=== PATIENT | female | born 1945 | race Caucasian/White ===

== ENCOUNTER 2019-07-07 08:40 | Outpatient (CLI) | payer MEDICARE, SELFPAY ==
--- NOTE | ~2019-07-07 | MM_ITS ---
EXAMINATION: MM screening cat BI w bruno HISTORY: Screening mammogram TECHNIQUE: Rotated lateral left cc view. There is a coarse determination as is suggested in the clear . There was some interval and there is a lower posterior is a short.*End there is where there is a te luis of the abdominal wall defect is seen or free the subcutaneous and 5 suggesting erosions of the wa ll and a standard. There is heterogeneous peripherally. There is an is present. Craniocaudal and mediolateral oblique 3-D tomosynthesis images were obtained and synthetic 2-D images were generated. CAD analysis was submitted and interpreted. COMPARISON: No prior mammogram is available for comparison at this institution. BREAST PARENCHYMAL COMPOSITION: There are scattered areas of fibroglandular density. FINDINGS: There is postoperative change of the left breast including volume loss from partial mastect shirley for breast cancer. There is no evidence of suspicious mass, calcification, or architectural disto rtion to suggest malignancy in either breast. There has been no suspicious interval change. IMPRESSION: 1. No mammographic evidence of malignancy. 2. Recommend routine screening mammography in one year. BI-RADS Category 2: Benign finding(s). Reviewed, dictated and finalized at location A. C D STRIPPER
== END 2019-07-07 08:41 | disposition home or self-care (01) ==
LOC: ANHIMG 08:43
PROVIDERS: PCP Internal Medicine; Visit Provider Internal Medicine
DX: Z12.31 Encounter for screening mammogram for malignant neoplasm of breast (principal)
CPT/HCPCS: 77063; 77067

== ENCOUNTER 2019-07-14 12:41 | Outpatient (CLI) | payer MEDICARE, SELFPAY ==
--- NOTE | ~2019-07-14 | XR_ITS ---
EXAMINATION: XR abdomen/kub 1V DATE: 07/14/2019 13:07 INDICATION: Left-sided renal stone with left abdominal pain TECHNIQUE: A supine view of the abdomen on 2 radiographs was obtained. COMPARISON: CT dated 06/18/[address] dated 06/13/2019 FINDINGS: No evident residual urolithiasis at either kidney or along the course of ureters. Costochondral calci fications project over the diaphragm on the left and right. Unchanged tiny phlebolith in the left hem ipelvis. Bilateral pelvic suture lines likely related to prior hysterectomy. Normal bowel gas pattern . Lung bases are clear. Severe bilateral lower lumbar facet osteoarthritis. IMPRESSION: 1. No urolithiasis. Reviewed, dictated and finalized at location A. RYCOOK IMPRESSION: 1. No urolithiasis.
== END 2019-07-14 12:42 | disposition home or self-care (01) ==
PROVIDERS: PCP Internal Medicine; Visit Provider Urology
DX: N20.0 Calculus of kidney (principal)
CPT/HCPCS: 74018

== ENCOUNTER 2020-03-13 08:33 | Outpatient (CLI) | payer MEDICARE, SELFPAY ==
--- NOTE | ~2020-03-13 | XR_ITS ---
XR abdomen/kub 1V DATE: 03/13/2020 08:55 INDICATION: History of kidney stones TECHNIQUE: AP projection, 2 views COMPARISON: 07/14/2019 KUB FINDINGS: There is a prominent amount of fecal material within the colon. No bowel obstruction is jasson dent. There are some radiopaque sutures overlying both sides of the pelvis. Associated as are intact. No visceromegaly is evident. No significant abnormal calcification is noted . There are degenerative changes of the lumbar spine, particularly at the apophyseal joints L4-5 and L5 -S1. IMPRESSION: Prominent amount fecal material within the colon; no bowel obstruction No apparent urinary tract calcifications are noted Reviewed, dictated and finalized at Location A. Reviewed, dictated and finalized at location A. IMPRESSION: Prominent amount fecal material within the colon; no bowel obstruct ion No apparent urinary tract calcifications are noted
== END 2020-03-13 08:34 | disposition home or self-care (01) ==
LOC: ANHIMG 08:37
PROVIDERS: PCP Internal Medicine; Visit Provider Urology
DX: Z87.442 Personal history of urinary calculi (principal)
CPT/HCPCS: 74018

== ENCOUNTER 2020-04-12 14:49 | Outpatient (CLI) | payer MEDICARE, SELFPAY ==
--- NOTE | ~2020-04-12 | DEXA_ITS ---
Bone Density Report Name: Marysol Robb Age: 75 Sex: Female Ethnicity: White Date of : 1945 Indication: osteopenia; cancer; hysterectomy; Referring Provider: ALBERT, TAYLER Morrison Study: Bone densitometry was performed. Exam Date: April 12, 2020 Accession number: [id number] Bone Density: Region BMD T-score Z-score Classification AP Spine (L1, L2, L3) 0.842 -1.6 0.7 Osteopenia Femoral Neck (Left) 0.699 -1.3 0.7 Osteopenia Total Hip (Left) 0.792 -1.2 0.5 Osteopenia Total Hip Bilateral Avg 0.790 -1.3 0.5 Osteopenia Femoral Neck (Right) 0.682 -1.5 0.5 Osteopenia Total Hip (Right) 0.787 -1.3 0.5 Osteopenia World Health Organization criteria for BMD impression classify patients as: Normal (T-score at or above -1.0), Osteopenia (T-score between -1.0 and -2.5), or Osteoporosis (T-score at or below -2.5). 10-year Fracture Risk(1): Major Osteoporotic Fracture 11% Hip Fracture 2.0% Reported Risk Factors: [place] (), Neck BMD=0.682, BMI=27.9 (1) FRAX(R) Version 3.08. Fracture probability calculated for an untreated patient. Fracture probability may be lower if the patient has received treatment. Previous Exams: Region Exam Age BMD T-score BMD Change BMD Change Date g/cm2 vs Baseline vs Previous AP Spine(L1, L2, L3) 04/12/2020 75 0.842 -1.6 -0.013(-1.5%) -0.013(-1.5%) 05/03/2014 69 0.855 -1.5 Total Hip(Left) 04/12/2020 75 0.792 -1.2 -0.070(-8.1%)* -0.070(-8.1%)* 05/03/2014 69 0.862 -0.7 Total Hip(Right) 04/12/2020 75 0.787 -1.3 -0.086(-9.9%)* -0.086(-9.9%)* 05/03/2014 69 0.873 -0.6 *Denotes significance at 95% confidence level, LSC for AP Spine = 0.022 g/cm2, LSC for Total Hip = 0.027 g/cm2 Clinical Information Provided by Patient: Has the following medical conditions: Cancer, Hysterectomy Patient maximum height was 65.5 Menopause Age: 46 No regular weight bearing exercise Does not regularly consume dairy products Drinks caffeinated beverages Onset of menses at age 14 Number of children 2 Impression: The patient has low bone mass, based on the Total Spine T-score. The patient has an estimated ten-year risk of hip fracture of 2% and an estimated ten-year risk of major fracture of 11%, based on the WHO FRAX algorithm. The BMD for the Total Hip(Left) decreased, changing by -8.1% since the last DXA exam. The BMD for the Total Hip(Right) decreased, changing by -9.9% since the last DXA exam. Discuss
== END 2020-04-12 14:50 | disposition home or self-care (01) ==
LOC: ANHIMG 14:51
PROVIDERS: PCP Internal Medicine; Visit Provider Internal Medicine
DX: N95.9 Unspecified menopausal and perimenopausal disorder (principal); M85.80 Other specified disorders of bone density and structure, unspecified site
CPT/HCPCS: 77080

== ENCOUNTER 2020-07-10 09:58 | Outpatient (CLI) | payer MEDICARE, SELFPAY ==
--- NOTE | ~2020-07-10 | MM_ITS ---
EXAMINATION: MM screening cat BI w bruno HISTORY: Screening mammogram, history of left breast cancer TECHNIQUE: Craniocaudal and mediolateral oblique 3-D tomosynthesis images were obtained and synthetic 2-D images were generated. CAD analysis was submitted and interpreted. COMPARISON: 07/07/2019 BREAST PARENCHYMAL COMPOSITION: There are scattered areas of fibroglandular density. FINDINGS: There are stable lumpectomy changes in the left breast. There is no evidence of suspicious mass, calcification, or architectural distortion to suggest malignancy in either breast. There has be en no suspicious interval change. IMPRESSION: 1. No mammographic evidence of malignancy. 2. Recommend routine screening mammography in one year. BI-RADS Category 2: Benign finding(s). Reviewed, dictated and finalized at location A. AL MERCHANDISER
== END 2020-07-10 09:59 | disposition home or self-care (01) ==
LOC: ANHIMG 10:02
PROVIDERS: PCP Internal Medicine; Visit Provider Internal Medicine
DX: Z12.31 Encounter for screening mammogram for malignant neoplasm of breast (principal)
CPT/HCPCS: 77063; 77067

== ENCOUNTER 2021-07-11 11:39 | Outpatient (CLI) | payer MEDICARE, SELFPAY ==
--- NOTE | ~2021-07-11 | MM_ITS ---
EXAMINATION: MM screening cat BI w bruno HISTORY: Screening mammogram, history of left breast cancer TECHNIQUE: Craniocaudal and mediolateral oblique 3-D tomosynthesis images were obtained and synthetic 2-D images were generated. CAD analysis was submitted and interpreted. COMPARISON: 07/10/2020, 07/07/2019 BREAST PARENCHYMAL COMPOSITION: There are scattered areas of fibroglandular density. FINDINGS: Lumpectomy changes are noted in the left breast. There is no evidence of suspicious mass, c alcification, or architectural distortion to suggest malignancy in either breast. There has been no s uspicious interval change. IMPRESSION: 1. No mammographic evidence of malignancy. 2. Recommend routine screening mammography in one year. BI-RADS Category 2: Benign finding(s). Reviewed, dictated and finalized at location A. ICING MANAGER
== END 2021-07-11 11:40 | disposition home or self-care (01) ==
LOC: ANHIMG 11:41
PROVIDERS: PCP Internal Medicine; Visit Provider Internal Medicine
DX: Z12.31 Encounter for screening mammogram for malignant neoplasm of breast (principal)
CPT/HCPCS: 77063; 77067

== ENCOUNTER 2022-07-15 10:36 | Outpatient (CLI) | payer MEDICARE, SELFPAY ==
--- NOTE | ~2022-07-15 | MM_ITS ---
EXAMINATION: MM screening cat BI w bruno HISTORY: Screening mammogram TECHNIQUE: Craniocaudal and mediolateral oblique 3-D tomosynthesis images were obtained and synthetic 2-D images were generated. CAD analysis was submitted and interpreted. COMPARISON: July 2021, July 10, 2020, July 07, 2019 bilateral screening mammogram examinati ons BREAST PARENCHYMAL COMPOSITION: The breasts are heterogeneously dense, which may obscure small masses . FINDINGS: Status post left partial mastectomy, with volume loss of the left breast compared to the ri ght. There is no evidence of suspicious mass, calcification, or architectural distortion to suggest m alignancy in either breast. There has been no suspicious interval change. IMPRESSION: 1. Status post left partial mastectomy for history of breast cancer. No mammographic evidence of piedad gnancy. 2. Recommend routine screening mammography in one year. BI-RADS Category 2: Benign finding(s). Reviewed, dictated and finalized at location A. TENDER IMPRESSION: 1. Status post left partial mastectomy for history of breast cancer. No mammogr aphic evidence of malignancy. 2. Recommend routine screening mammography in one year. BI-RADS Category 2: Benign finding(s).
== END 2022-07-15 10:37 | disposition home or self-care (01) ==
LOC: ANHIMG 10:39
PROVIDERS: PCP Internal Medicine; Visit Provider Internal Medicine
DX: Z12.31 Encounter for screening mammogram for malignant neoplasm of breast (principal)
CPT/HCPCS: 77063; 77067

== ENCOUNTER 2023-01-09 09:42 | Outpatient (CLI) | payer MEDICARE, SELFPAY ==
--- NOTE | ~2023-01-09 | DEXA_ITS ---
Bone Density Report Name: JAVIER ALFORD Age: 77 Sex: Female Ethnicity: White Date of : 1945 Indication: osteopenia; hyperparathyroidism; height loss; prior fracture; hysterectomy; postmenopausal Referring Provider: CHRISTINAKARRI Study: Bone densitometry was performed. Exam Date: January 09, 2023 Accession number: [id number] Bone Density: Region BMD T-score Z-score Classification AP Spine(L1-L4) 0.848 -1.8 0.7 Osteopenia Femoral Neck (Left) 0.631 -2.0 0.2 Osteopenia Total Hip (Left) 0.754 -1.5 0.3 Osteopenia Femoral Neck (Right) 0.657 -1.7 0.4 Osteopenia Total Hip (Right) 0.734 -1.7 0.2 Osteopenia Total Hip Mean 0.744 -1.6 0.3 Osteopenia World Health Organization criteria for BMD impression classify patients as: Normal (T-score at or above -1.0), Osteopenia (T-score between -1.0 and -2.5), or Osteoporosis (T-score at or below -2.5). 10-year Fracture Risk(1): Major Osteoporotic Fracture 21% Hip Fracture 5.0% Reported Risk Factors: [place] (), Neck BMD=0.631, BMI=26.1, previous fracture (1) FRAX(R) Version 3.08. Fracture probability calculated for an untreated patient. Fracture probability may be lower if the patient has received treatment. Previous Exams: Region Exam Age BMD T-score BMD Change BMD Change Date g/cm2 vs Baseline vs Previous Total Hip(Left) 01/09/2023 77 0.754 -1.5 -0.038 (-4.8%) -0.038 (-4.8%) 04/12/2020 75 0.792 -1.2 Total Hip(Right) 01/09/2023 77 0.734 -1.7 -0.053 (-6.7%) -0.053 (-6.7%) 04/12/2020 75 0.787 -1.3 *Denotes significance at 95% confidence level, LSC for Total Hip = 0.027 g/cm2 Clinical Information Provided by Patient: Has had a low trauma fracture Has used the following medications: Vitamin D Has the following medical conditions: Hyperparathyroidism, Hysterectomy Patient maximum height was 66.5 Menopause Age: 53 No regular weight bearing exercise Does not regularly consume dairy products Drinks caffeinated beverages Onset of menses at age 14 Number of children 2 Impression: The patient has low bone mass, based on the Left Femoral Neck T-score. The patient has an estimated ten-year risk of hip fracture of 5% and an estimated ten-year risk of major fracture of 21%, based on the WHO FRAX algorithm. The patient has risk factors, including: previous fracture. The BMD for the Total Hip(Left) decreased, changing by -4.8% since the last DXA exam. The BMD for the Total Hip(Right) decreased, changing
--- NOTE | ~2023-01-09 | DEXA_ITS ---
Bone Density Report Name: JAVIER ALFORD Age: 77 Sex: Female Ethnicity: White Date of : 1945 Indication: hyperparathyroidism; height loss; prior fracture; hysterectomy; postmenopausal Referring Provider: CHRISTINAKARRI Study: Bone densitometry was performed. Exam Date: January 09, 2023 Accession number: [id number] Bone Density: Region BMD T-score Z-score Classification Total Forearm (Left) 0.368 -3.9 -1.3 1/3 Forearm (Left) 0.441 -4.2 -1.5 UD Forearm (Left) 0.304 -2.4 -0.4 World Health Organization criteria for BMD impression classify patients as: Normal (T-score at or above -1.0), Osteopenia (T-score between -1.0 and -2.5), or Osteoporosis (T-score at or below -2.5). Clinical Information Provided by Patient: Has had a low trauma fracture Has used the following medications: Vitamin D Has the following medical conditions: Hyperparathyroidism, Hysterectomy Patient maximum height was 66.5 Menopause Age: 53 No regular weight bearing exercise Does not regularly consume dairy products Drinks caffeinated beverages Onset of menses at age 14 Number of children 2 Impression: The patient has established osteoporosis, based on the Left Third Radius T-score and the existence of a prior fracture. The patient has risk factors, including: previous fracture. Discussion: HIGH RISK OF FRACTURE. BONE DENSITY IS UNDESIRABLY LOW AT ONE OR MORE SKELETAL SITES, CONSISTENT WITH POSTMENOPAUSAL OSTEOPOROSIS. This patient's lowest T-score, in a patient who has previously fractured, meets the World Health Organization's (WHO) criteria for severe osteoporosis. In untreated patients, the risk of osteoporotic fracture increases approximately two-fold for each 1.0 SD decrease in T-score. Low bone density is not the only risk factor for fracture; also consider factors such as patient's age, frailty or poor health, risk of falling, risk of injury, previous osteoporotic fracture, family history of osteoporosis, cigarette smoking, low body weight, etc. Not everyone with low bone mineral density has osteoporosis; osteomalacia and other metabolic bone disorders should also be considered. Patients who have osteoporosis should be evaluated for specific diseases and conditions (secondary causes) that may cause or contribute to bone loss. The [place] Association of Clinical Endocrinologists (AACE) and National Osteoporosis Foundation (NOF) recommend pharmacologic intervention for all postmenopausal women whose T-score is in this range. The patient should follow a healthful lifestyle (good nutrition with adequate calcium and vitamin D, and appropriate weight-bearing exercise). Follow-Up: Consider a repeat BMD and Vertebral Fracture Assessment (VFA) exam in 2 years or sooner if medically necessary, to reassess this patient's status. Reported by: TOM on 01/09/2023 2:01:00 PM. Reviewed, dictated and finalized at location A. BULMARO
== END 2023-01-09 09:43 | disposition home or self-care (01) ==
PROVIDERS: PCP Internal Medicine; Visit Provider Internal Medicine Endocrinology, Diabetes & Metabolism
DX: E21.0 Primary hyperparathyroidism (principal); Z78.0 Asymptomatic menopausal state; M85.89 Other specified disorders of bone density and structure, multiple sites
CPT/HCPCS: 77080; 77081

== ENCOUNTER 2023-01-13 07:46 | Outpatient (CLI) | payer MEDICARE, SELFPAY ==
--- NOTE | ~2023-01-13 | NM_ITS ---
EXAMINATION: NM parathyroid imaging w spect DATE: 01/13/2023 12:16 INDICATION: Hyperparathyroidism TECHNIQUE: 19.6 mCi Tc99m tetrofosmin (Myoview) was administered by intravenous route. Anterior image s of the neck were obtained at 10 minutes and 3 hours. COMPARISON: None. FINDINGS/IMPRESSION: There is a single prominent focus of persistent activity in the area of the inferior left thyroid con sistent with a parathyroid adenoma. Reviewed, dictated and finalized at location B.
== END 2023-01-13 07:47 | disposition home or self-care (01) ==
PROVIDERS: PCP Internal Medicine; Visit Provider Internal Medicine Endocrinology, Diabetes & Metabolism
DX: E21.0 Primary hyperparathyroidism (principal)
CPT/HCPCS: 78071; A9500

== ENCOUNTER 2023-09-08 14:26 | Outpatient (CLI) | payer MEDICARE, SELFPAY ==
--- NOTE | ~2023-09-08 | MM_ITS ---
EXAMINATION: MM screening cat BI w bruno HISTORY: Screening TECHNIQUE: Craniocaudal and mediolateral oblique 3-D tomosynthesis images were obtained and synthetic 2-D images were generated. CAD analysis was submitted and interpreted. COMPARISON: Comparison to multiple prior studies sequentially, with oldest reviewed study dated 07/07. BREAST PARENCHYMAL COMPOSITION: There are scattered areas of fibroglandular density. FINDINGS: There is no evidence of suspicious mass, calcification, or architectural distortion to sugg est malignancy in either breast. There has been no suspicious interval change. IMPRESSION: 1. No mammographic evidence of malignancy. 2. Recommend routine screening mammography in one year. BI-RADS Category 1: Negative Reviewed, dictated and finalized at location A.
== END 2023-09-08 14:27 | disposition home or self-care (01) ==
LOC: ANHIMG 14:29
PROVIDERS: PCP Internal Medicine; Visit Provider Internal Medicine
DX: Z12.31 Encounter for screening mammogram for malignant neoplasm of breast (principal)
CPT/HCPCS: 77063; 77067

== ENCOUNTER 2023-09-09 10:52 | Outpatient (CLI) | payer MEDICARE, SELFPAY ==
--- NOTE | ~2023-09-09 | XR_ITS ---
Supine and upright views of the abdomen Clinical history: Renal stones Findings: Bowel gas pattern is nonspecific. No evidence for obstruction or free air. Questionable rig ht lower pole renal stone versus bowel contents.. Osseous structures are intact, with mild to moderat e degenerative change of the right hip joint.. Impression: Possible right lower pole renal stone versus overlying bowel contents. Reviewed, dictated and finalized at location . Impression: Possible right lower pole renal stone versus overlying bowel contents.
== END 2023-09-09 10:53 | disposition home or self-care (01) ==
LOC: ANHIMG 10:55
PROVIDERS: PCP Internal Medicine; Visit Provider Urology
DX: Z87.442 Personal history of urinary calculi (principal)
CPT/HCPCS: 74018

== ENCOUNTER 2023-09-18 14:33 | Outpatient (CLI) | payer MEDICARE, SELFPAY ==
--- NOTE | ~2023-09-18 | CT_ITS ---
EXAMINATION: CT abdomen pelvis wo con DATE: 09/18/2023 14:52 INDICATION: Kidney stones TECHNIQUE: Computed tomography (CT) of the abdomen and pelvis was performed without intravenous contr ast. Automated exposure control and iterative reconstruction technique were employed. The dose-length product was 249.61 mGy-cm. COMPARISON: None FINDINGS: Lung bases are clear. Heart size is normal. No pericardial or pleural effusion. Small sliding-type hi atal hernia. Liver, gallbladder, spleen, pancreas, left kidney and bilateral adrenal glands are marcelina l. 9 x 5 x 8 mm obstructing stone at the right ureteropelvic junction with moderate right hydronephro sis. No other evident urolithiasis on either the left or right. 1.4 cm cyst at the upper pole of the right kidney. Bladder is normal. The uterus in bilateral ovaries are not visualized with suture lines at the bilateral adnexal regions consistent with prior total hysterectomy and bilateral salpingo-oop horectomy. Bowels including the appendix are normal. No free intraperitoneal gas or fluid. No patholo gically enlarged abdominal, pelvic or inguinal lymphadenopathy. Mild lumbar levocurvature with modera te to severe spondylosis. IMPRESSION: 1. 9 x 5 x 8 mm obstructing stone at the right ureteropelvic junction with moderate right hydronephro sis. Reviewed, dictated and finalized at location B. IMPRESSION: 1. 9 x 5 x 8 mm obstructing stone at the right ureteropelvic junction with mode rate right hydronephrosis.
== END 2023-09-18 14:34 | disposition home or self-care (01) ==
PROVIDERS: PCP Internal Medicine; Visit Provider Urology
DX: Z87.442 Personal history of urinary calculi (principal)
CPT/HCPCS: 74176

== ENCOUNTER 2023-10-01 09:26 | Outpatient (CLI) | payer MEDICARE, SELFPAY ==
[2023-10-01 10:10] LABS: Prothrombin Time 13.1 Seconds (11.1-14.7)
[2023-10-01 10:11] LABS: Partial Thromboplastin Time 25.9 Seconds (22.3-36.8)
== END 2023-10-01 09:27 | disposition home or self-care (01) ==
PROVIDERS: PCP Internal Medicine; Visit Provider Urology
DX: N20.0 Calculus of kidney (principal); Z01.818 Encounter for other preprocedural examination
CPT/HCPCS: 36415; 85610; 85730; 87086

== ENCOUNTER 2023-10-10 03:23 | Day surgery (SDC) | payer MEDICARE, SELFPAY ==
[2023-09-30 14:24] VITALS: BMI 25.0
--- NOTE | 2023-09-30 14:41 | PC.NURSE ---
Addendum entered by Mecca Valencia RN 10/01/23 15:29: PT CONTACTED AND INFORMED TO ARRIVE 0930 10/10/23 FOR SURGERY AT 1130 - UNDERSTANDING VOICED Original Note: PRE-OP INSTRUCTIONS, PLEASE READ CAREFULLY Report to the Outpatient Waiting Room, entrance under the green pavilion located off [facility], at time _0600_ on date _10/10/23_. Planned Procedure Time: _10/10/23_. Time changes happen often and if your time is changed the preop area will call you the afternoon before. - You and your visitor will be asked to self-screen and do not enter if you have any COVID symptoms. - A mask is optional within the hospital at this time. Patients may have clear liquids (water, carbonated beverages, clear teas, apple juice) until 3 hours prior to surgery with a maximum of 20 ounces. - No food from midnight until time of surgery Take the following medications with a SIP of water the morning of surgery: _ANTIBIOTIC_ DO NOT STOP ANY OF YOUR OTHER PRESCRIPTION MEDICATIONS PRIOR TO SURGERY ?EXCEPT THE FOLLOWING Medications to discontinue per - _PT STATES TO STOP ASPIRIN 7 DAYS PRIOR TO SURGERY PER DR. NORTON'S INSTRUCTIONS, Date to take last dose 10/02/23_ Please no make-up, nail vietnamese, hairspray, perfume, deodorant, or body powder the day of surgery. No jewelry (including any body piercings) or valuables the day of surgery, leave them at home. Please take a shower or bath the night before, or the morning of, surgery with an antibacterial soap. Wear comfortable, loose fitting clothing. - Jewelry must be removed prior to entering the operating room. Rings and piercings that are not removed may be cut off. - The hospital will not accept responsibility for valuables. - Please leave all valuables, including medications, at home the day of surgery. If you are going home after surgery, a licensed school bus driver/teacher assistant must drive you home. - NO public transportation without another adult if you receive anesthesia. - We recommend that an adult stay with you for 24 hours following discharge. - We also recommend that you do not drive, make important decision, drink alcoholic beverages, or take any drugs that were not prescribed by your health care provider for at least 24 hours after your discharge time. Follow any additional instructions given to you from your surgeon. If you or anyone in your household have experienced Covid symptoms in the past week, please notify your surgeon or the nurse liaison at the phone number below for possible testing. Telephone instructions given to _PATIENT_and asked if any additional questions and then verbalized understanding. Patient advised to call surgeon office or pre surgery nurse liaison [phone] if any additional questions.
--- NOTE | 2023-10-09 08:21 | P.HP_ITS ---
History of Present Illness History of Present Illness Consent: Risks, benefits, and alternatives have been discussed and questions answered. Patient agrees to proceed with procedure. Chief complaint: right renal stones Narrative: aMrysol Robb is a 78 year old female who we recently saw in evaluation for recurrent cystitis. She also has a history of hyperparathyroidism. Imaging demonstrated a 9 mm right renal calculus. After discussion of options she has elected for right ESWL. We may plan cystoscopy with retrograde pyelography in the event the stone is difficult to visualize. She is aware the risk including, but not limited to, adverse cardiopulmonary events, hematuria, perinephric hematoma and need for additional procedures. Review of Systems Cardiovascular: Cardiovascular: Denies chest pain, Denies lightheadedness, Denies palpitations and Denies dyspnea Respiratory: Respiratory: Denies dyspnea Gastrointestinal: Gastrointestinal: Denies diarrhea, Denies nausea and Denies vomiting Genitourinary: Genitourinary: Denies hematuria and Denies dysuria Endocrine: Endocrine: Denies palpitations PMF Past Medical History Medical History Breast cancer History of radiation therapy Hyperlipidemia Kidney stones Surgical History Surgical History History of hysterectomy History of lumpectomy Social History Social History Smoking status: Never smoker Second hand tobacco smoke exposure: No Alcohol intake: never Alcohol use details: Occasional Substance use: never Substance use type: does not use Living arrangements: with family Additional living arrangements comments: PT LIVES WITH SOUSE Gender identity (if verbalized by the patient): Female Spiritual care concerns: No Meds Home Medications and Allergies Home Medications Medication Instructions Recorded Confirmed Type aspirin 81 mg tablet,delayed 81 mg PO DAILY 06/15/19 09/30/23 History release (Aspir-Low) cholecalciferol (vitamin D3) 100 4,000 unit PO DAILY 06/15/19 09/30/23 History mcg (4,000 unit) capsule calcium citrate 200 mg (950 mg) 200 mg PO DAILY 09/30/23 09/30/23 History tablet levofloxacin 500 mg tablet 500 mg DAILY 09/30/23 09/30/23 History Allergies Allergy/AdvReac Type Severity Reaction Status Date / Time latex Allergy Intermediate RASH Verified 09/30/23 14:21 Exam Const: General: no acute distress Resp: Effort & Inspection: normal respiratory effort GI: Inspection: non-distended GI Palp: No abdominal tenderness and No Guarding due to palpation present (GI) Auscultation: normal bowel sounds Assessment and Plan Assessment and plan (1) Right renal stone: Code(s): N20.0 - Calculus of kidney Status: Acute Assessment and Plan: * Right ESWL, possible cystoscopy with retrograde pyelography
[2023-10-10] VITALS (7 sets, daily range): BP systolic 134–152; BP diastolic 58–81; PULSE 67–82; RESP 12–20; TEMP 36–36.1; O2SAT 97–100; BMI 25.3
--- NOTE | ~2023-10-10 | XR_ITS ---
XR abdomen/kub 1V 10/10/2023 09:30 Indication: Preop ESWL Procedure: KUB Comparison: Comparison to multiple prior studies sequentially, with oldest reviewed study dated 06/18. Findings: Bowel gas pattern is nonobstructive. There is right renal stone unchanged at the L2-3 level . Bowel gas pattern nonobstructive. Moderate lumbar spondylosis. Impression: 1: Table right nephrolithiasis. Reviewed, dictated and finalized at location B. Impression: 1: Table right nephrolithiasis.
--- NOTE | 2023-10-10 06:19 | WPDHPUPDATE1 ---
History and Physical Update Update Date/Time: 10/10/23 06:19 History and Physical has been reviewed, including an updated exam of the patient. There are NO changes in the patient's condition. Risks, benefits, and alternatives have been discussed and questions answered. Patient agrees to proceed with procedure.
[2023-10-10] MEDS: LACTATED RINGERS 1,000 ML 30 ML IV CONT (09:45)
--- NOTE | 2023-10-10 10:33 | P.PNAN_ITS ---
Anes - Initial Pre Proc Eval Procedure: Operation Date: 10/10/23 11:30 Proposed Procedures p Right Extracorporeal Shock Wave Lithotripsy, - Sarthak Torre MD s Possible Cystoscopy, Possible Retrograde Pyelogram - Sarthak Torre MD Date/Time: 10/10/23 10:33 Surgeon: Sarthak Torre MD Pre Op Diagnosis: right renal stones Patient Data Age: 78 Gender: F Height: 1.65 m Weight: 69 kg Last Vital Signs Temp 36.1 C L 10/10/23 09:31 Pulse 74 10/10/23 09:31 Resp 14 10/10/23 09:31 BP 134/70 10/10/23 09:31 Pulse Ox 99 10/10/23 09:31 O2 Del Method Room Air 10/10/23 09:31 Allergies Allergy/AdvReac Type Severity Reaction Status Date / Time latex Allergy Intermediate RASH Verified 10/10/23 09:54 Home Medications Medication Instructions Recorded Confirmed Type aspirin 81 mg tablet,delayed 81 mg PO DAILY 06/15/19 10/10/23 History release (Aspir-Low) cholecalciferol (vitamin D3) 100 4,000 unit PO DAILY 06/15/19 09/30/23 History mcg (4,000 unit) capsule calcium citrate 200 mg (950 mg) 200 mg PO DAILY 09/30/23 09/30/23 History tablet levofloxacin 500 mg tablet 500 mg DAILY 09/30/23 09/30/23 History Patient hx anesthesia problems: none Family hx anesthesia problems: none Results Review: All pre-operative results and documents have been reviewed as part of the pre- operative evaluation. [facility] Past Medical History Medical History Breast cancer History of radiation therapy Hyperlipidemia Kidney stones Surgical History Surgical History (Updated 10/10/23 @ 10:34 by Quintin Combs MD) H/O lithotripsy History of hysterectomy History of lumpectomy Social History Social History Smoking status: Never smoker Second hand tobacco smoke exposure: No Alcohol intake: never Alcohol use details: Occasional Substance use: never Substance use type: does not use Living arrangements: with family Additional living arrangements comments: PT LIVES WITH SOUSE Gender identity (if verbalized by the patient): Female Spiritual care concerns: No Anes - Eval Final PreProcedure Day of Procedure 10/10/23 10:33 Patient weight: normal Heart: regular rate and rhythm Lungs: clear to auscultation Airway: Mallampati scale class II Neurological: alert and oriented Last oral intake: >/= 8 hours ASA classification: III Emergent: no Anesthetic plan: proceed Anesthesia type and monitoring: general LMA and standard monitoring Results Review: All pre-operative results and documents have been reviewed as part of the pre- operative evaluation. Informed Consent: The patient's anesthetic plan and its attendant risks and benefits were discussed with the patient/family/POA. Questions were solicited and answers provided to the satisfaction of the patient/family/POA.
[2023-10-10] MEDS: ceFAZolin 2 GM/D5W 50 ML 2 GM/50 ML BAG IVPB (11:46)
--- NOTE | 2023-10-10 11:58 | W.PM.PROC2 ---
Procedure Note - Detailed Date of Procedure 10/10/23 Pre-op Diagnosis Right renal stones Post-op Diagnosis Same Procedure Performed Right ESWL Surgeon Sarthak Torre MD Anesthesia General Description of Procedure The patient was brought to the operative suite where she was placed in the supine position on the Dornier lithotripsy table. The focal point of the lithotripter was placed at a 7-8mm right renal calculus. A total of 2500 shocks were delivered at a power setting of 4. There appeared to be good fragmentation of the stone. The patient tolerated the procedure well and was taken to the recovery room in good condition. Drains No Packing No Pathology None sent Complications No immediate complications Condition Stable
== END 2023-10-10 13:45 | disposition home or self-care (01) ==
PROVIDERS: PCP Internal Medicine; Visit Provider Urology
PROC: (CPT 50590; principal; 2023-10-10 11:30)
DX: N20.0 Calculus of kidney (principal); Z79.82 Long term (current) use of aspirin; Z85.3 Personal history of malignant neoplasm of breast
CPT/HCPCS: 50590; 36415; 74018; 85610; 85730; 87086; J0690; J1100; J2405; J2704; J3010; J7120

== ENCOUNTER 2023-10-21 13:03 | Outpatient (CLI) | payer MEDICARE, SELFPAY ==
--- NOTE | ~2023-10-21 | XR_ITS ---
EXAM: XR abdomen/kub 1V DATE: 10/21/2023 13:16 HISTORY: N20.0 - Calculus of kidney . COMPARISON: 10/10/2023. FINDINGS: Clear lung bases. Normal bowel gas pattern. No organomegaly. 9 mm right lower pole calcifi cation, smaller than in the prior study. No distal calcification is identified. Degenerative changes in the spine and bilateral hips. Suture lines in the left and right pelvis. IMPRESSION: Right lower pole nephrolith which appears smaller in today's study indicating likely part ial stone passage. No distal calcification detected. Reviewed, dictated and finalized at location K. IMPRESSION: Right lower pole nephrolith which appears smaller in today's study indicating likely partial stone passage. No distal calcification detected.
== END 2023-10-21 13:04 | disposition home or self-care (01) ==
LOC: ANHIMG 13:06
PROVIDERS: PCP Internal Medicine; Visit Provider Urology
DX: N20.0 Calculus of kidney (principal)
CPT/HCPCS: 74018

== ENCOUNTER 2023-11-04 07:12 | Outpatient (CLI) | payer MEDICARE, SELFPAY ==
--- NOTE | ~2023-11-04 | XR_ITS ---
Supine and upright views of the abdomen Clinical history: Renal stone COMPARISON: 10/21/2023 Findings: Bowel gas pattern is nonspecific. No evidence for obstruction or free air. Stable right-emerita ed renal stone.. Osseous structures are intact. Impression: Stable right-sided renal stone. Reviewed, dictated and finalized at [facility]. Impression: Stable right-sided renal stone.
== END 2023-11-04 07:13 | disposition home or self-care (01) ==
LOC: ANHIMG 07:15
PROVIDERS: PCP Internal Medicine; Visit Provider Urology
DX: N20.0 Calculus of kidney (principal)
CPT/HCPCS: 74018

== ENCOUNTER 2023-11-20 04:44 | Day surgery (SDC) | payer MEDICARE, SELFPAY ==
[2023-11-12 11:29] VITALS: BMI 24.9
--- NOTE | 2023-11-12 11:49 | PC.NURSE ---
Report to the Outpatient Waiting Room, entrance under the green pavilion located off [facility], at time __11:30AM on date ___11/20/23____. Planned Procedure Time: __1:30PM . Time changes happen often and if your time is changed the preop area will call you the afternoon before. - You and your visitor will be asked to self-screen and do not enter if you have any COVID symptoms. - A mask is optional within the hospital at this time. Patients may have clear liquids (water, carbonated beverages, clear teas, apple juice) until 3 hours prior to surgery with a maximum of 20 ounces. - No food from midnight until time of surgery. Take the following medications with a SIP of water the morning of surgery: ____NONE DO NOT STOP ANY OF YOUR OTHER PRESCRIPTION MEDICATIONS PRIOR TO SURGERY ?EXCEPT THE FOLLOWING Medications to discontinue per physician HOLD ASPIRIN 7 DAYS PRE-OP PER DR NORTON- LAST DOSE 11/12/23 HOLD ALL VITAMINS/SUPPLEMENTS 3 DAYS PRE-OP PER ANESTHESIA- LAST DOSE 11/16/23. Please no make-up, nail ecuadorean, hairspray, perfume, deodorant, or body powder the day of surgery. No jewelry (including any body piercings) or valuables the day of surgery, leave them at home. Please take a shower or bath the night before, or the morning of, surgery with an antibacterial soap. Wear comfortable, loose fitting clothing. - Jewelry must be removed prior to entering the operating room. Rings and piercings that are not removed may be cut off. - The hospital will not accept responsibility for valuables. - Please leave all valuables, including medications, at home the day of surgery. If you are going home after surgery, a licensed vibratory pile driver must drive you home. - NO public transportation without another adult if you receive anesthesia. - We recommend that an adult stay with you for 24 hours following discharge. - We also recommend that you do not drive, make important decision, drink alcoholic beverages, or take any drugs that were not prescribed by your health care provider for at least 24 hours after your discharge time. Follow any additional instructions given to you from your surgeon. If you or anyone in your household have experienced Covid symptoms in the past week, please notify your surgeon or the nurse liaison at the phone number below for possible testing. Telephone instructions given to ____PATIENT and asked if any additional questions and then verbalized understanding. Patient advised to call surgeon office or pre surgery nurse liaison [phone] if any additional questions.
[2023-11-20] VITALS (7 sets, daily range): BP systolic 138–148; BP diastolic 72–85; PULSE 67–89; RESP 13–16; TEMP 36.3–36.5; O2SAT 97–100
--- NOTE | ~2023-11-20 | XR_ITS ---
EXAMINATION: XR retrograde pyelo w/stent RT DATE: 11/20/2023 12:45 INDICATION: Right internal ureteral stent placement TECHNIQUE: Fluoroscopic images from a right stent placement are submitted for review. 46 seconds of f luoroscopy time. FINDINGS: There is a right double-J internal ureteral stent projecting in expected position, with proximal [place] loop at the level of the renal pelvis and distal loop in the pelvis within the bladder lumen. IMPRESSION: 1. Right internal ureteral stent placement. Please refer to real-time procedural findings for tash ls. Reviewed, dictated and finalized at location B. IMPRESSION: 1. Right internal ureteral stent placement. Please refer to real-time procedu ral findings for details.
--- NOTE | 2023-11-20 06:15 | WPDHPUPDATE1 ---
History and Physical Update Update Date/Time: 11/20/23 06:15 History and Physical has been reviewed, including an updated exam of the patient. There are NO changes in the patient's condition. Risks, benefits, and alternatives have been discussed and questions answered. Patient agrees to proceed with procedure.
[2023-11-20] MEDS: LACTATED RINGERS 1,000 ML 30 ML IV CONT (11:06)
--- NOTE | 2023-11-20 11:40 | WPDANESEPPF ---
Anes - Initial Pre Proc Eval Procedure: Operation Date: 11/20/23 13:30 Proposed Procedures p Cystoscopy, Right Ureteroscopy, Right Stone Extraction, Possible Holmium Laser Lithotripsy, Possible Right Retrograde Pyelography, Right stent Placement - Sarthak Torre MD Date/Time: 11/20/23 11:40 Surgeon: Sarthak Torre MD Pre Op Diagnosis: Rt Ureteral Stone Patient Data Age: 78 Gender: F Height: 1.65 m Weight: 70.9 kg Last Vital Signs Temp 97.6 F 11/20/23 10:51 Pulse 74 11/20/23 10:51 Resp 16 11/20/23 10:51 BP 138/78 11/20/23 10:51 Pulse Ox 100 11/20/23 10:51 O2 Del Method Room Air 11/20/23 10:51 Allergies Allergy/AdvReac Type Severity Reaction Status Date / Time latex Allergy Intermediate RASH Verified 11/12/23 11:27 Home Medications Medication Instructions Recorded Confirmed Type aspirin 81 mg tablet,delayed 81 mg PO DAILY 06/15/19 11/20/23 History release (Aspir-Low) cholecalciferol (vitamin D3) 100 4,000 unit PO DAILY 06/15/19 11/20/23 History mcg (4,000 unit) capsule calcium citrate 200 mg (950 mg) 200 mg PO DAILY 09/30/23 11/20/23 History tablet hydrocodone 5 mg-acetaminophen 325 1 - 2 tablet PO Q6H PRN pain #20 10/10/23 11/20/23 Rx mg tablet tabs vit C 250 mg-vit E 90 mg-zinc 40 1 tablet PO DAILY 11/12/23 11/20/23 History mg-copper 1 [id number] capsule (PreserVision AREDS-2) Patient hx anesthesia problems: none Family hx anesthesia problems: none Results Review: All pre-operative results and documents have been reviewed as part of the pre-operative evaluation. [facility] Past Medical History Medical History Breast cancer History of radiation therapy Hyperlipidemia Kidney stones Surgical History Surgical History H/O lithotripsy History of hysterectomy History of lumpectomy Social History Social History Smoking status: Never smoker Second hand tobacco smoke exposure: No Alcohol intake: current Alcohol use details: Occasional Substance use: never Substance use type: does not use Living arrangements: with family Additional living arrangements comments: SPOUSE Gender identity (if verbalized by the patient): Female Spiritual care concerns: No Anes - Eval Final PreProcedure Day of Procedure 11/20/23 11:40 Patient weight: normal Heart: regular rate and rhythm Lungs: clear to auscultation Airway: Mallampati scale class II Neurological: alert and oriented Last oral intake: >/= 8 hours ASA classification: III Emergent: no Anesthetic plan: proceed Anesthesia type and monitoring: general LMA and standard monitoring Results Review: All pre-operative results and documents have been reviewed as part of the pre-operative evaluation. Hyperlipidemia, hx of breast ca, s/p lumpectomy/chemo/rad. Informed Consent: The patient's anesthetic plan and its attendant risks and benefits were discussed with the patient/family/POA. Questions were solicited and answers provided to the satisfaction of the patient/family/POA.
[2023-11-20] MEDS: ceFAZolin 2 GM/D5W 50 ML 2 GM/50 ML BAG IVPB (12:01)
--- NOTE | 2023-11-20 12:50 | W.PM.PROC2 ---
Procedure Note - Detailed Date of Procedure 11/20/23 Pre-op Diagnosis Rt Ureteral Stone Post-op Diagnosis Same Procedure Performed Cystoscopy, right ureteroscopy with laser lithotripsy, stone extraction, retrograde pyelogram and stent placement Surgeon Sarthak Torre MD Anesthesia General Description of Procedure Patient is brought to the operative suite where she was prepped draped in routine sterile fashion while in dorsal lithotomy position after the uneventful induction of a general LMA anesthetic. Cystoscopy was undertaken with a 19 F rigid cystoscope. Bladder neck and urethra endoscopically normal. There is a single orthotopic ureteral orifice bilaterally. A 0.035 in glidewire was advanced into the low right renal pelvis under fluoroscopy. Distal ureter was dilated with an 8 F 10 F dilator and a 11 F/ 13 F ureteral access sheath was placed. I can visualize her right ureteral stone under fluoroscopy. It is accessed with a 7.5 F flexible ureteral scope with ease. Using a 200 72 micron Kashif laser fiber I fractured into multiple small pieces using a dusting technique. All sizable pieces were removed with a 1.9 F disposable stone basket. A 4.8 F variable length stent was positioned with the proximal coil in the renal pelvis distal coil in the bladder. Patient tolerated the procedure well and was taken to the recovery room in good condition Drains Yes Packing No Pathology Yes
--- NOTE | 2023-11-20 13:12 | SUR.PHASEI ---
Simple mask removed 1312.
== END 2023-11-20 14:06 | disposition home or self-care (01) ==
PROVIDERS: PCP Internal Medicine; Visit Provider Urology
PROC: (CPT 52352; principal; 2023-11-20 13:30)
DX: N20.1 Calculus of ureter (principal)
CPT/HCPCS: 52356; 74420; 82365; 88300; C1769; C1894; C2617; J0690; J1100; J2371; J2405; J2704; J3010; J7120; Q9966

== ENCOUNTER 2024-07-19 11:39 | Outpatient (CLI) | payer MEDICARE, SELFPAY ==
--- NOTE | ~2024-07-19 | XR_ITS ---
Supine and upright views of the abdomen Clinical history: Kidney stones COMPARISON: 11/04/2023 Findings: Bowel gas pattern is nonspecific. No evidence for obstruction or free air. No abnormal mass lesion or calcification is seen. Stable suture line at the right lower quadrant. There is moderate d egenerative change of the right hip joint. Impression: No definite renal stone is identified. Reviewed, dictated and finalized at location . CONFINEMENT SYSTEM MANAGER Impression: No definite renal stone is identified.
--- OUTSIDE RECORDS SUMMARY | 2024-07-19 12:23 | XMS_ITS | Encounter Summary ---
Author Organization [facility] Address 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
--- OUTSIDE RECORDS SUMMARY | 2024-07-19 12:23 | XMS_ITS | Encounter Summary ---
Author Organization [facility] Address [address] [place] [address] Care Team Providers Care Circuitry Negative Inspector Name Role Phone Ben Alatorre MD Primary Care Provider [phone] Encounter Details Date Type Department Care Team (Latest Contact Info) Description 01/22/2000 Outpatient Historical HIS [facility] Aries [place] NO ADDRESS ON FILE Malignant neoplasm of breast (female), unspecified site (CMS/HCC) (Primary Dx) Social History Tobacco Use Types Packs/Day Years Used Date Smoking Tobacco: Never Assessed Comments Unknown Sex and Gender Information Value Date Recorded Sex Assigned at Not on file 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
--- OUTSIDE RECORDS SUMMARY | 2024-07-19 12:23 | XMS_ITS | Encounter Summary ---
Author Organization [facility] Address [address] [place] [address] Care Team Providers Care Dog Trainer Name Role Phone Ben Alatorre MD Primary Care Provider [phone] Encounter Details Date Type Department Care Team (Latest Contact Info) Description 01/21/2001 Outpatient Historical [facility] Aries [place] NO ADDRESS ON FILE Personal history of malignant neoplasm of breast (Primary Dx) Social History Tobacco Use Types Packs/Day Years Used Date Smoking Tobacco: Never Assessed Comments Unknown Sex and Gender Information Value Date Recorded Sex Assigned at Not on file Legal Sex Female 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
--- OUTSIDE RECORDS SUMMARY | 2024-07-19 12:23 | XMS_ITS | Encounter Summary ---
Author Organization [facility] Address 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
--- OUTSIDE RECORDS SUMMARY | 2024-07-19 12:23 | XMS_ITS | Encounter Summary ---
Author Organization [facility] Address 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
--- OUTSIDE RECORDS SUMMARY | 2024-07-19 12:23 | XMS_ITS | Encounter Summary ---
Author Organization [facility] Address 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
--- OUTSIDE RECORDS SUMMARY | 2024-07-19 12:23 | XMS_ITS | Encounter Summary ---
Author Organization [employer] Address [address] [place] [address] Care Team Providers Care Infrastructure Security Architect Name Role Phone Ben Alatorre MD Primary Care Provider [phone] Encounter Details Date Type Department Care Team (Latest Contact Info) Description 10/11/2003 Outpatient Historical HIS LAB,NON-PATIENT Aries Mcintosh NO ADDRESS ON FILE ENLARGEMENT LYMPH NODES (Primary Dx) Social History Tobacco Use Types Packs/Day Years Used Date Smoking Tobacco: Never Assessed Comments Unknown Sex and Gender Information Value Date Recorded Sex Assigned at Not on file Legal Sex Female 4:16 AM RN OR LVN Gender Identity Not on file Sexual Orientation Not on file documented as of this encounter Plan of Treatment Not on file documented as of this encounter Visit Diagnoses Diagnosis Enlargement of lymph nodes- Primary documented in this encounter Care Teams Infrastructure Security Architect Relationship Specialty Start Date End Date Ben Alatorre MD PCP - General Internal Medicine 01/30/12 documented as of this encounter
--- OUTSIDE RECORDS SUMMARY | 2024-07-19 12:23 | XMS_ITS | Encounter Summary ---
Author Organization [facility] Address [address] [place] [address] Care Team Providers Care Lieutenant Fire Fighter Name Role Phone Ben Alatorre MD Primary Care Provider [phone] Encounter Details Date Type Department Care Team (Late st Contact Info) Description 12/13/2008 Outpatient Historical HIS [facility], External Provider [address] [place] [address] Other Screening Mammogram Social History Tobacco Use Types Packs/Day Years Used Date Smoking Tobacco: Never Assessed Comments Unknown Sex and Gender Information Value Date Recorded Sex Assigned at Not on file Legal Sex Female 4:16 AM UR COORDINATOR Gender Identity Not on file Sexual Orientation Not on file documented as of this encounter Plan of Treatment Not on file documented as of this encounter Procedures Procedure Name Priority Date/Time Associated Diagnosis Comments MAMMO SCREEN BILAT W OR WO CAD Routine 12/13/2008 8:59 AM CDT documented in this encounter Results * MAMMO DIGITAL SCREEN BILAT (12/13/2008 8:59 AM CDT) Anatomical Region Laterality Modality Breast Bilateral Other 12/13/2008 8:59 AM CDT Narrative 12/14/2008 3:20 PM CDT [facility] [address] [place], [place] [address] Admit Date: 12/13/2008 MARYSOL ALFORD Sex: F Admit Prov: DOCTOR , NOT ONSTAFF Date: 1945 Primary Care Prov: CMRN: [id number] Room: FELA SSN: [id number] IMAGING SERVICES Ordering Prov: DOCTOR NOT ONSTA Accession Number: [id number] Interpretation DIGITAL SCREENING MAMMOGRAM WITH COMPUTER-ASSISTED DIAGNOSIS History: Annual screening study. Findings: The breasts were imaged with digital mammographic technique. There are scattered fibroglandular densities. No significant mass, malignant calcification or architectural distortion is noted. The CAD system does not highlight any suspicious areas. Summary: No mammographic evidence of malignancy. There has been no significant change from prior study of 12/2007. Recommendations: Bilateral yearly screening mammogram is recommended. BIRADS 1 - Negative Assessment BIRADS: 1-Negative Recommendation: Normal interval follow-up Dictated by: MARGY BIRD Electronically signed by: MARGY BIRD 12/14/2008 15:20 Transcribed: 12/14/2008 09:05 AMK Procedure Note Margy Monteiro MD - 12/14/[address] [address] Admit Date: 12/13/2008 MARYSOL ALFORD Sex: F Admit Prov: DOCTOR , NOT ONSTAFF Date: 1945 Primary Care Prov: CMRN: [id number] Room: FELA SSN: [id number] IMAGING SERVICES Ordering Prov: DOCTOR , NOT ONSTAGRETA Interpretation DIGITAL SCREENING MAMMOGRAM WITH COMPUTER-ASSISTED DIAGNOSIS History: Annual screening study. Findings: The breasts were imaged with digital mammographictechnique. There are scattered fibroglandular densities. No significant mass, malignant calcification or architectural distortion is noted. The CAD system does not highlight any suspicious areas. Summary: No mammographic evidence of malignancy. There has been no significant change from prior study of 12/2007. Recommendations: Bilateral yearly screening mammogram is recommended. BIRADS 1 - Negative Assessment BIRADS: 1-Negative Recommendation: Normal interval follow-up Dictated by: MARGY BIRD Electronically signed by: MARGY BIRD 12/14/2008 15:20 Transcribed: 12/14/2008 09:05 AMK External Provider [facility] MAMMO ORDERABLES Final R esult documented in this encounter Visit Diagnoses Diagnosis Other screening mammogram documented in this encounter Care Teams Lieutenant Fire Fighter Relationship Specialty Start Date End Date Ben Alatorre MD PCP - General Internal Medicine 01/30/12 documented as of this encounter
--- OUTSIDE RECORDS SUMMARY | 2024-07-19 12:23 | XMS_ITS | Clinical Summary ---
Author Organization [facility] [address] [place] [address] Care Team Providers Care Ophthalmic Nurse Name Role Phone Ben Alatorre MD Primary Care Provider [phone] Allergies Active Allergy Reactions Criticality Noted Date Comments Latex Blisters High 02/24/2023 Sulfa (Sulfonamide Antibiotics) Blisters High 06/10 Medications aspirin 81 mg chewable tablet 1 tablet (81 mg total) Active cholecalciferol (cholecalcifero l) 25 mcg (1,000 unit) tablet Take 1 tablet (1,000 Units total) by mouth daily Active vitamin B complex capsule Take 1 capsule by mouth daily Active ascorbic acid (ascorbic acid with blanco hips) 500 mg tablet,chewable Acti ve zinc 50 mg tablet Take by mouth Active vit C,M-Ck-onszs-lilibeth tein-zeaxan 250-90-40-1 mg capsule Take 1 capsule by mouth daily Active calcium citrate (CALCITRATE) 950 mg (200 mg of elemental calcium) tablet Take 2 tablets (1,900 mg total) by mouth daily for 7 days, THEN 1 tablet (950 mg total) daily for 7 days. 21 tablet 3 Active fluorouraciL (EFUDEX) 5 % cream 4 Active alendronate (FOSAMAX) 70 mg tablet Take 1 tablet (70 mg total) by mouth every 7 days 1 tablet weekly on an empty stomach, remain upright for at least 30 minutes 12 tablet 2 5 07/08/19 26 Active alendronate (FOSAMAX) 70 mg tablet Take 1 tablet (70 mg total) by mouth every 7 days 1 tablet weekly on an empty stomach, remain upright for at least 30 minutes 12 tablet 2 4 07/08/19 25 Discontinu ed(Reorder ) Active Problems Problem Noted Date Diagnosed Date Other osteoporosis without current pathological fracture 07/15/2023 Assessment & Plan (07/15/2023 4:10 PM SKIP MINER BLASTING): Fall precautions discussed Calcium and vitamin-D intake also recommended Start bisphosphonate therapy with Fosamax 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) 02/24/2023 Acute urinary tract infection 07/03/2021 Herpes labialis 07/03/2021 Overweight 07/03/2021 Pain due to varicose veins of both lower extremi ties 07/03/2021 Pain in limb 07/03/2021 Pneumococcal vaccination given 07/03/2021 Overactive bladder 07/03/2021 Mammogram abnormal 07/03/2021 Screening for osteoporosis 07/03/2021 H/O screening mammography 07/03/2021 Osteopenia 05/06/2017 Hyperlipidemia 04/14/2017 Vitamin D deficiency 04/14/2017 Assessment & Plan (07/15/2023 4:11 PM SKIP MINER BLASTING): Update 25 hydroxy vitamin-D level Will adjust dose of cholecalciferol, if indicated Assessment & Plan (12/31/2022 4:05 PM CDT): Update 25 OH vit D Treat accordignly Malignant neoplasm of breast 06/08/1991 Resolved Problems Problem Noted Date Diagnosed Date Resolved Date Hyperparathyroidism 03/24/2023 07/15/19 24 Hyperparathyroidism, primary 07/03/2021 07/15/2023 Assessment & Plan (12/31/2022 4:05 PM CDT): With recurrent nephrolithiasis Will request 24 h urine collection, SPECT parathyroid scan Consider referral to surgery Assessment & Plan (12/11/2021 3:00 PM CDT): Continue monitoring serum calcium every 6 to 12 months Because history of kidney stones, I have requested a kidney ultrasound Assessment & Plan (07/03/2021 4:10 PM SKIP MINER BLASTING): Pathophysiology of the condition was discussed with patient at length, The main concerns would be a effects of elevated PTH on bones and kidneys, e,g, nephrolithiasis or nephrocalcinosis Will recheck PTH, serum calcium 24 hour urine calcium. Will get reports of bone density done as the last few years Also request a 24 hour urine calcium as well a kidney ultrasound Recommendations to follow. Encounters Date Type Department Care Team Description 07/08/2024 3:15 PM SKIP MINER BLASTING Office Visit [facility] [address] [address] Eileen New MD Vitamin D deficiency (Primary Dx); Other osteoporosis without current pathological fracture from Last 3 Months Immunizations Name Administration Dates Next Due Influenza, Quad, Adjuvantate d, Intramuscular 03/12/2021 Influenza, Quadrivalent, Spl it, Intramuscular 03/15/2019 Influenza, Trivalent, High D ose, Split, Preservative Free, Intramuscular 03/10/2016,03/24/2015,03/16/2013 Influenza, Unspecified 03/16/2018,04/04/2017 Moderna SARS-CoV-2 Monovalen t Vaccination (12+ YRS) 08/31/2020,08/03/2020 Pneumococcal Conjugate PCV 13 02/13/2018 Pneumococcal Polysaccharide PPV23 04/25/2014 Surgical History Surgery Date Site/Laterality Comments BREAST LUMPECTOMY DO NOT USE LEFT ARM HYSTERECTOMY Medical History Medical History Date Comments Hyperparathyroidism (HCC) Breast cancer (HCC) 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) (HCC) Hyperthyroidism Hyperparathyroidism, primary (HCC) 07/03/2021 Hyperparathyroidism (HCC) 03/24/2023 Family History Medical History Relation Name Comments Diabetes Brother Heart disease Father No Known Problems Mother Rheum arthritis Sister Relation Name Status Comments Brother Father Alive Mother Sister Social History Tobacco Use Types Packs/Day Years Used Date Smoking Tobacco: Never Smokeless Tobacco: Never Tobacco Cessation:Counseling Given: Not Answered PHQ-2 Answer Date Recorded PHQ-2 Total Score (If total score is 3 or more points, staff should administer the PHQ-9) 0 12/11/2021 Personal Safety Answer Date Recorded Have you ever been in or are you currently in a harmful physical or emotional relationship or is someone making you feel afraid or unsafe? Denies 03/24/2023 Comments Unknown Sex and Gender Information Value Date Recorded Sex Assigned at Not on file Legal Sex Female 11:13 AM SKIP MINER BLASTING Gender Identity Not on file Sexual Orientation Not on file Obstetrics History Last Filed Vital Signs Vital Sign Reading Time Taken Comments Blood Pressure 112/62 07/08/2024 3:19 PM SKIP MINER BLASTING Pulse 66 07/08/2024 3:19 PM SKIP MINER BLASTING Temperature 37.1 C (98.7 F) 04/13/2023 11:19 AM SKIP MINER BLASTING Respiratory Rate 17 07/08/2024 3:19 PM SKIP MINER BLASTING Oxygen Saturation 98% 04/13/2023 11:19 AM SKIP MINER BLASTING Inhaled Oxygen Concentration - - Weight 73.9 kg (163 lb) 07/08/2024 3:19 PM SKIP MINER BLASTING Height 167.6 cm (5' 6 ) 07/08/2024 3:19 PM SKIP MINER BLASTING Body Mass Index 26.31 07/08/2024 3:19 PM SKIP MINER BLASTING Plan of Treatment Health Maintenance Due Date Last Done Comments Hepatitis C Screening 1945 DTaP/Tdap/Td Vaccine (1 - Tdap) 1957 Hepatitis B Screening 1964 Zoster Vaccine (1 of 2) 1996 Well Visit 65+ 2011 Depression Screening 12/11/2022 12/11/2021 Covid-19 Vaccine (6 - 2023-2 5 season) 2024 05/07/2021, 08/31/2020, 08/31/2020, Additional history exists Influenza Vaccine (#1) 2024 , 03/15/2019, 03/16/2018, Additional history exists Fall Risk Assessment 03/24/2024 03/24/2023 Osteoporosis Screening-Bone Density Scan 01/09/2025 01/09/2023 Pneumococcal vaccine 65+ Completed 02/13/2018, 04/09 Procedures Procedure Name Priority Date/Time Associated Diagnosis Comments DEXA AXIAL SKELETON BONE DENSITY 1 OR MORE SITES Schedule Routine, Read Routine (OP Routine) 01/09/2023 3:23 PM CDT from Last 3 Months or Most Recently Relevant to Health Maintenance Results * Dexa Axial Skeleton Bone Density 1 or 2 Site (01/09/2023 3:23 PM CDT) Anatomical Region Laterality Modality Body N/A Radiographic Fiona ging Eileen New MD IMG DXA PROCEDURES Final Result from Last 3 Months or Most Recently Relevant to Health Maintenance Insurance Care Teams Ophthalmic Nurse Relationship Specialty Start Date End Date Ben Alatorre MD PCP - General Internal Medicine 05/23/21
--- OUTSIDE RECORDS SUMMARY | 2024-07-19 12:23 | XMS_ITS | Patient Health Record ---
Author Organization [facility] Address [address] [facility] [address] [facility] [address] [place] [address] Care Team Providers Care Night Baker Name Role Phone EVITA WALKER Unavailable [phone] Reason For Referral No Information Medications Medication SIG (Take, Route, Fr equency, Duration) Notes Start Date End Date Status Vitamin D 1000 UNIT 1 tablet Orally Once a day for 30 day(s) Active Aspirin 81 MG 1 tablet Orally Once a day for 30 day(s) Active Social History Tobacco Use: Social History Observation Description Date Details (start date - stop date) Never Smoker NA - NA Tobacco Use/Smoking Question Answer Notes Are you a nonsmoker Alcohol Screen (Audit-C) Question Answer Notes Did you have a drink containing alcohol in the p ast year? No Points 0 Interpretation Negative Problems Problem Type SNOMED Code ICD Code Onset Dates Problem Status W/U Status Risk Notes Problem 06986766 Varicose veins of bilateral lower extremities with pain (I83.813) Active confirmed Problem 658795320 Overweight (BMI 25.0-29.9) (E66.3) Active confirmed Problem 062659545 Pain of left lower extremity (M79.605) Active confirmed Plan Of Treatment No Information Insurance Providers Payer Name Payer Address Payer Phone Subscriber Number Group Number Insured Name Patient Relationship to Insured Coverage Start Date Coverage End Date [facility] [employer] [address] [address] [place] [address] [id number] Marysol Robb Self - patient is the insured Medical (General) History Medical History History ICD Code varicose veins, kidney stones Surgical History Surgery Date(Month/Year) lumpectomy 1991 hysterectomy 1997
--- OUTSIDE RECORDS SUMMARY | 2024-07-19 12:23 | XMS_ITS | Encounter Summary ---
Author Organization [facility] Address [address] [place] [address] Care Team Providers Care Media Planner / Buyer Name Role Phone Ben Alatorre MD Primary Care Provider [phone] Encounter Details Date Type Department Care Team (Latest Contact Info) Description 07/27/2002 Outpatient Historical HIS [facility] Aries Dodge NO ADDRESS ON FILE SCREENING MAMM-MAILG NEOPL-OTHER (Primary Dx) Social History Tobacco Use Types Packs/Day Years Used Date Smoking Tobacco: Never Assessed Comments Unknown Sex and Gender Information Value Date Recorded Sex Assigned at Not on file Legal Sex Female 4:16 AM RUG SETTER AXMINSTER Gender Identity Not on file Sexual Orientation Not on file documented as of this encounter Plan of Treatment Not on file documented as of this encounter Visit Diagnoses Diagnosis Other screening mammogram- Primary documented in this encounter Care Teams Media Planner / Buyer Relationship Specialty Start Date End Date Ben Alatorre MD PCP - General Internal Medicine 01/30/12 documented as of this encounter
--- OUTSIDE RECORDS SUMMARY | 2024-07-19 12:23 | XMS_ITS | Continuity of Care Document ---
Author Organization formerly [facility] Address [address] [place] [address] [address] [place] [address] Phone Care Team Providers Care Refrigeration Technician Name Role Phone Kris Conway Unavailable Unavailable Procedures Procedure Date Eye Exam & Treatment Advance Directives Directive Yes / No Effective Date File Name No Information Encounters Encounter Description Practice Location Reason(s) For Visit Diagnoses Date Provider Providers Copied on Encounter [facility], [id number] [place] [address] [address], [place], [place], [id number], [place] tel:[phone] [facility] No Information [address] Zoraida Ponce. [address] , [address], [place], [address], [place]. tel:[phone] Family History Family Member Type Diagnosis Age At Onset No Information Payers Payer name Insurance type Covered green party ID Authoriza tion(s) No Information Social History [...]
--- OUTSIDE RECORDS SUMMARY | 2024-07-19 12:23 | XMS_ITS | Clinical Summary ---
Author Organization [facility] Address [address] [facility] [place] [address] Phone Care Team Providers Care Field Services Manager Name Role Phone Ben Alatorre MD Primary Care Provider Family History Medical History Relation Name Comments Breast Cancer Maternal Grandmother Relation Name Status Comments Maternal Grandmother Social History Tobacco Use Types Packs/Day Years Used Date Smoking Tobacco: Never Assessed Comments Unknown Sex and Gender Information Value Date Recorded Sex Assigned at Not on file Legal Sex Female 4:16 AM GLASS CUTTING MACHINE FEEDER Gender Identity Not on file Sexual Orientation Not on file Occupation Industry Job Start Date Job End Date Not on file Not on file Not on file Not on file Not on file Not on file Not on file Not on file Plan of Treatment Health Maintenance Due Date Last Done Comments DTAP/TDAP/TD VACCINES (1 - Tdap) 1965 PNEUMOCOCCAL VACCINE 65+ YEARS (1 of 1 - PCV) 03/09/19 96 ZOSTER VACCINE (1 of 2) 1996 OSTEOPOROSIS SCREENING 2011 RSV VACCINE (60+ or ) (1 - 1-dose 75+ series) 2021 INFLUENZA VACCINE (#1) 2024 Insurance [facility] [id number] [place] [id number] Care Teams Field Services Manager Relationship Specialty Start Date End Date Ben Alatorre MD PCP - General Internal Medicine 01/30/12
--- OUTSIDE RECORDS SUMMARY | 2024-07-19 12:23 | XMS_ITS | Referral Summary ---
Author Organization [facility] Phys[facility] Office Building [address] [place] [address] Care Team Providers Care Cloth Shrinking Supervisor Name Role Phone Ben Alatorre MD Primary Care Provider [phone] Encounters Date Type Department Care Team Description 07/08/2024 3:15 PM ROLL HAULER Office Visit [facility] [address] [address] Eileen New MD Vitamin D deficiency (Primary Dx); Other osteoporosis without current pathological fracture from Last 3 Months Allergies Active Allergy Reactions Criticality Noted Date [...] mg tablet Take by mouth Active vit C,R-Qf-etpjs-lilibeth tein-zeaxan 250-90-40-1 mg capsule Take 1 capsule [...] 07/15/2023 Assessment & Plan (07/15/2023 4:10 PM ROLL HAULER): Fall precautions discussed Calcium and vitamin-D intake [...] 04/14/2017 Assessment & Plan (07/15/2023 4:11 PM ROLL HAULER): Update 25 hydroxy vitamin-D level Will adjust [...] ultrasound Assessment & Plan (07/03/2021 4:10 PM ROLL HAULER): Pathophysiology of the condition was discussed with [...] well a kidney ultrasound Recommendations to follow. Immunizations Name Administration Dates Next Due Influenza, Quad, Adjuvantate d, Intramuscular 03/12/2021 Influenza, Quadrivalent, Spl it, Intramuscular 03/15/2019 Influenza, Trivalent, High D ose, Split, Preservative Free, Intramuscular 03/10/2016,03/24/2015,03/16/2013 Influenza, Unspecified 03/16/2018,04/04/2017 Moderna SARS-CoV-2 Monovalen t Vaccination (12+ YRS) 08/31/2020,08/03/2020 Pneumococcal Conjugate PCV 13 02/13/2018 Pneumococcal Polysaccharide PPV23 04/25/2014 Social History Tobacco Use Types Packs/Day Years [...] on file Legal Sex Female 11:13 AM ROLL HAULER Gender Identity Not on file Sexual Orientation Not on file Last Filed Vital Signs Vital Sign Reading Time Taken Comments Blood Pressure 112/62 07/08/2024 3:19 PM ROLL HAULER Pulse 66 07/08/2024 3:19 PM ROLL HAULER Temperature 37.1 C (98.7 F) 04/13/2023 11:19 AM ROLL HAULER Respiratory Rate 17 07/08/2024 3:19 PM ROLL HAULER Oxygen Saturation 98% 04/13/2023 11:19 AM ROLL HAULER Inhaled Oxygen Concentration - - Weight 73.9 kg (163 lb) 07/08/2024 3:19 PM ROLL HAULER Height 167.6 cm (5' 6 ) 07/08/2024 3:19 PM ROLL HAULER Body Mass Index 26.31 07/08/2024 3:19 PM ROLL HAULER Plan of Treatment Not on file Procedures Procedure Name Priority Date/Time Associated Diagnosis [...] Most Recently Relevant to Health Maintenance Insurance MEDICARE [facility] MEDICARE [employer] MEDICARE Care Teams Cloth Shrinking Supervisor Relationship Specialty Start Date End Date Ben Alatorre MD PCP - General Internal Medicine 05/23/21
--- OUTSIDE RECORDS SUMMARY | 2024-07-19 12:24 | XMS_ITS | Encounter Summary ---
Author Organization [facility] Address [address] [place] [address] Care Team Providers Care Pit And Auxiliaries Supervisor Name Role Phone Ben Alatorre MD Primary Care Provider [phone] Encounter Details Date Type Department Care Team (Late st Contact Info) Description 10/11/2003 Outpatient Historical HIS [facility] Aries Mcintosh NO ADDRESS ON FILE Social History Tobacco Use Types Packs/Day Years Used Date Smoking Tobacco: Never Assessed Comments Unknown Sex and Gender Information Value Date Recorded Sex Assigned at Not on file Legal Sex Female 4:16 AM SERVICE CREW LEADER Gender Identity Not on file Sexual Orientation Not on file documented as of this encounter Plan of Treatment Not on file documented as of this encounter Visit Diagnoses Not on filedocumented in this encounter Care Teams Pit And Auxiliaries Supervisor Relationship Specialty Start Date End Date Ben Alatorre MD PCP - General Internal Medicine 01/30/12 documented as of this encounter
--- OUTSIDE RECORDS SUMMARY | 2024-07-19 12:24 | XMS_ITS | Encounter Summary ---
Author Organization [facility] Address [address] [place] [address] Care Team Providers Care Professor In Family Studies Name Role Phone Ben Alatorre MD Primary Care Provider [phone] Encounter Details Date Type Department Care Team (Latest Contact Info) Description 10/29/2006 Outpatient Historical HIS [facility] ALFAR[facility] BLDG Conversion, History Other Screening Mammogram (Primary Dx) Social History Tobacco Use Types Packs/Day Years Used Date Smoking Tobacco: Never Assessed Comments Unknown Sex and Gender Information Value Date Recorded Sex Assigned at Not on file Legal Sex Female 4:16 AM BRAKE PRESS OPERATOR Gender Identity Not on file Sexual Orientation Not on file documented as of this encounter Plan of Treatment Not on file documented as of this encounter Visit Diagnoses Diagnosis Other screening mammogram- Primary documented in this encounter Care Teams Professor In Family Studies Relationship Specialty Start Date End Date Ben Alatorre MD PCP - General Internal Medicine 01/30/12 documented as of this encounter
--- OUTSIDE RECORDS SUMMARY | 2024-07-19 12:24 | XMS_ITS | Encounter Summary ---
Author Organization [facility] Address 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 Gender Identity Not on file Sexual Orientation Not on file documented as of this encounter Plan of Treatment Not on file documented as of this encounter Procedures Procedure Name Priority Date/Time Associated Diagnosis Comments MAMMO SCREEN BILAT W OR WO CAD Timed Study 12/10/2007 10:42 AM CDT documented in this encounter Results * MAMMO DIGITAL SCREEN BILAT (12/10/2007 10:42 AM CDT) Anatomical Region Laterality Modality Breast Bilateral Other 12/10/2007 10:4 2 AM CDT Narrative 12/16/2007 5:16 PM CDT [address] [address] Admit Date: 12/10/2007 MARYSOL ALFORD Sex: F Admit Prov: DOCTOR, NOT O Date: 1945 Primary Care Prov: CMRN: [id number] Room: FELA SSN: [id number] IMAGING SERVICES Ordering Prov: BEN ALATORRE Accession Number: [id number] Interpretation BILATERAL SCREENING DIGITAL MAMMOGRAMS WITH COMPUTER ASSISTED DIAGNOSIS, 12/10/2007 Clinical History: Previous left breast lumpectomy and radiation for breast cancer. Findings: A bilateral digital mammogram is compared with previous exams of November 2006 and October 2006. Changes in the left breast related to previous lumpectomy and radiation are again seen and remain stable. There is moderate fibroglandular tissue density. There is no evidence of breast mass or radiographic signs of malignancy in either breast. The CAD system was utilized. Impression: Stable postlumpectomy and radiation changes of the left breast. No evidence of malignancy or change since October 2006. Assessment BIRADS: 2-Benign finding Recommendation: Normal interval follow-up Dictated by: KRAIG DIALLO Electronically signed by: KRAIG DIALLO 12/16/2007 17:16 Transcribed: 12/10/2007 12:51 DKT Procedure Note Kraig Diallo MD - 12/16/2007 [id number] [place], [place] [address] Admit Date: 12/10/2007 MARYSOL ALFORD Sex: F Admit Prov: DOCTOR, NOT O Date: 1945 Primary Care Prov: CMRN: [id number] Room: FELA SSN: [id number] IMAGING SERVICES Ordering Prov: BEN ALATORRE Interpretation BILATERAL SCREENING DIGITAL MAMMOGRAMS WITH COMPUTER ASSISTEDDIAGNOSIS, 12/10/2007 Clinical History: Previous left breast lumpectomy and radiation forbreast cancer. Findings: A bilateral digital mammogram is compared with previousexams of November 2006 and October 2006. Changes in the left breast related toprevious lumpectomy and radiation are again seen and remain stable. There is moderate fibroglandular tissue density. There is no evidence ofbreast mass or radiographic signs of malignancy in either breast. The CAD systemwas utilized. Impression: Stable postlumpectomy and radiation changes of the left breast. No evidence of malignancy or change since October 2006. Assessment BIRADS: 2-Benign finding Recommendation: Normal interval follow-up Dictated by: KRAIG DIALLO Electronically signed by: KRAIG DIALLO 12/16/2007 17:16 Transcribed: 12/10/2007 12:51 DKT us Ben Alatorre MD MAMMO ORDERABLES Final Result documented in this encounter Visit Diagnoses Diagnosis Other screening mammogram documented in this encounter Care Teams Warehouse Order Filler Relationship Specialty Start Date End Date Ben Alatorre MD PCP - General Internal Medicine 01/30/12 documented as of this encounter
--- OUTSIDE RECORDS SUMMARY | 2024-07-19 12:24 | XMS_ITS | Encounter Summary ---
Author Organization [facility] Address 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
--- OUTSIDE RECORDS SUMMARY | 2024-07-19 12:24 | XMS_ITS | Encounter Summary ---
Author Organization [facility] Address 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
--- OUTSIDE RECORDS SUMMARY | 2024-07-19 12:24 | XMS_ITS | Encounter Summary ---
Author Organization [facility] Address 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
--- OUTSIDE RECORDS SUMMARY | 2024-07-19 12:24 | XMS_ITS | Encounter Summary ---
Author Organization [facility] Address 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
== END 2024-07-19 11:40 | disposition home or self-care (01) ==
PROVIDERS: PCP Internal Medicine; Visit Provider Urology
DX: Z87.442 Personal history of urinary calculi (principal)
CPT/HCPCS: 74018

== ENCOUNTER 2024-09-08 09:58 | Outpatient (CLI) | payer MEDICARE, SELFPAY ==
--- NOTE | ~2024-09-08 | MM_ITS ---
EXAMINATION: MM screening cat BI w bruno HISTORY: Screening TECHNIQUE: Craniocaudal and mediolateral oblique 3-D tomosynthesis images were obtained and synthetic 2-D images were generated. CAD analysis was submitted and interpreted. COMPARISON: Comparison to multiple prior studies sequentially, with oldest reviewed study dated 07/07. BREAST PARENCHYMAL COMPOSITION: Not dense: There are scattered areas of fibroglandular density. FINDINGS: There is no evidence of suspicious mass, calcification, or architectural distortion to sugg est malignancy in either breast. There has been no suspicious interval change. IMPRESSION: 1. No mammographic evidence of malignancy. 2. Recommend routine screening mammography in one year. BI-RADS Category 1: Negative Reviewed, dictated and finalized at location A.
--- OUTSIDE RECORDS SUMMARY | 2024-09-08 11:08 | XMS_ITS | Encounter Summary ---
Author Organization [facility] Address 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
--- OUTSIDE RECORDS SUMMARY | 2024-09-08 11:08 | XMS_ITS | Encounter Summary ---
Author Organization [facility] Address 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
--- OUTSIDE RECORDS SUMMARY | 2024-09-08 11:08 | XMS_ITS | Encounter Summary ---
Author Organization [facility] Address 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
--- OUTSIDE RECORDS SUMMARY | 2024-09-08 11:08 | XMS_ITS | Referral Summary ---
Author Organization [facility] Phys[facility] Office [facility] [address] [place] [address] Care Team Providers Care Diagnostic Assistant Name Role Phone Ben Alatorre MD Primary Care Provider [phone] Encounters Date Type Department Care Team Description 07/08/2024 3:15 PM ENGRAVING PRESS OPERATOR Office Visit [facility] [address] [address] Eileen New MD Vitamin D [...] mg tablet Take by mouth Active vit C,Z-Fn-srijs-lilibeth tein-zeaxan 250-90-40-1 mg capsule Take 1 capsule by mouth daily Active calcium citrate (CALCITRATE) 950 mg (200 mg of elemental calcium) tablet Take 2 tablets (1,900 mg total) by mouth daily for 7 days, THEN 1 tablet (950 mg total) daily for 7 days. 21 tablet 03/24/2023 Active fluorouraciL (EFUDEX) 5 % cream 06/27/2023 Active alendronate (FOSAMAX) 70 mg tablet Take 1 tablet (70 mg total) by mouth every 7 days 1 tablet weekly on an empty stomach, remain upright for at least 30 minutes 12 tablet 2 07/08/2024 Active Active Problems Problem Noted Date Diagnosed Date Other osteoporosis without current pathological fracture 07/15/2023 Assessment & Plan (07/15/2023 4:10 PM ENGRAVING PRESS OPERATOR): Fall precautions discussed Calcium and vitamin-D intake [...] 04/14/2017 Assessment & Plan (07/15/2023 4:11 PM ENGRAVING PRESS OPERATOR): Update 25 hydroxy vitamin-D level Will adjust [...] ultrasound Assessment & Plan (07/03/2021 4:10 PM ENGRAVING PRESS OPERATOR): Pathophysiology of the condition was discussed with [...] a kidney ultrasound Recommendations to follow. Immunizations Immunization Administration Dates Next Due Influenza, Quad, Adjuvantate [...] on file Legal Sex Female 11:13 AM ENGRAVING PRESS OPERATOR Gender Identity Not on file Sexual Orientation Not on file Last Filed Vital Signs Vital Sign Reading Time Taken Comments Blood Pressure 112/62 07/08/2024 3:19 PM ENGRAVING PRESS OPERATOR Pulse 66 07/08/2024 3:19 PM ENGRAVING PRESS OPERATOR Temperature 37.1 C (98.7 F) 04/13/2023 11:19 AM ENGRAVING PRESS OPERATOR Respiratory Rate 17 07/08/2024 3:19 PM ENGRAVING PRESS OPERATOR Oxygen Saturation 98% 04/13/2023 11:19 AM ENGRAVING PRESS OPERATOR Inhaled Oxygen Concentration - - Weight 73.9 kg (163 lb) 07/08/2024 3:19 PM ENGRAVING PRESS OPERATOR Height 167.6 cm (5' 6 ) 07/08/2024 3:19 PM ENGRAVING PRESS OPERATOR Body Mass Index 26.31 07/08/2024 3:19 PM ENGRAVING PRESS OPERATOR Plan of Treatment Not on file Procedures [...] Most Recently Relevant to Health Maintenance Insurance [employer] MEDICARE [employer] MEDICARE Care Teams Diagnostic Assistant Relationship Specialty Start Date End Date Ben Alatorre MD PCP - General Internal Medicine 05/23/21
--- OUTSIDE RECORDS SUMMARY | 2024-09-08 11:08 | XMS_ITS | Encounter Summary ---
Author Organization [facility] Address 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
--- OUTSIDE RECORDS SUMMARY | 2024-09-08 11:08 | XMS_ITS | Patient Health Record ---
Author Organization [facility] Address [address] [facility] [address] [place] [address] Care Team Providers Care Registered Nurse Surgical Services Name Role Phone EVITA WALKER Unavailable [phone] Reason For Referral No Information Medications Medication [...] Problem Status W/U Status Risk Notes Problem [id number] Varicose veins of bilateral lower extremities with pain (I83.813) Active confirmed Problem 012567102 Overweight (BMI 25.0-29.9) (E66.3) Active confirmed Problem [id number] Pain of left lower extremity (M79.605) Active confirmed Plan Of Treatment No Information Insurance Providers Payer Name Payer Address Payer Phone Subscriber Number Group Number Insured Name Patient Relationship to Insured Coverage Start Date Coverage End Date [facility] [employer] [address] [address] [place] [address] [id number] Marysol Robb Self - patient is the insured Medical (General) History Medical History History ICD Code varicose veins, kidney stones Surgical History Surgery Date(Month/Year) lumpectomy 1991 hysterectomy 1997
--- OUTSIDE RECORDS SUMMARY | 2024-09-08 11:08 | XMS_ITS | Encounter Summary ---
Author Organization [facility] Address 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 Gender Identity Not on file Sexual Orientation [...] AM CDT Narrative 12/16/2007 5:16 PM CDT [address] [address] Admit Date: 12/10/2007 MARYSOL ALFORD Sex: F Admit Prov: DOCTOR, NOT O Date: 1945 Primary Care Prov: CMRN: [id number] Room: FELA SSN: [id number] IMAGING SERVICES Ordering Prov: BEN ALAOTRRE Accession Number: [id number] Interpretation BILATERAL SCREENING DIGITAL MAMMOGRAMS WITH COMPUTER [...] Procedure Note Kraig Diallo MD - 12/16/2007 [address] [place], [place] [address] Admit Date: 12/10/2007 MARYSOL ALFORD Sex: F Admit Prov: DOCTOR, NOT O Date: 1945 Primary Care Prov: CMRN: [id number] Room: FELA SSN: [id number] IMAGING SERVICES Ordering Prov: BEN ALATORRE Interpretation [...] mammogram documented in this encounter Care Teams Wax Pumper Relationship Specialty Start Date End Date Ben Alatorre MD PCP - General Internal Medicine 01/30/12 documented as of this encounter
--- OUTSIDE RECORDS SUMMARY | 2024-09-08 11:08 | XMS_ITS | Encounter Summary ---
Author Organization [facility] Address 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
--- OUTSIDE RECORDS SUMMARY | 2024-09-08 11:08 | XMS_ITS | Encounter Summary ---
Author Organization [facility] Address 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
--- OUTSIDE RECORDS SUMMARY | 2024-09-08 11:08 | XMS_ITS | Encounter Summary ---
Author Organization [facility] Address 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
--- OUTSIDE RECORDS SUMMARY | 2024-09-08 11:08 | XMS_ITS | Encounter Summary ---
Author Organization [facility] Address [address] [place] [address] Care Team Providers Care Reconciliation Machine Operator Name Role Phone Ben Alatorre MD Primary Care Provider [phone] Encounter Details Date Type Department Care Team (Latest Contact Info) Description 09/13/2005 Outpatient Historical HIS JYOTI ALFARO BLDG Conversion, History Screening Mammogram for High-Risk Patient (Primary Dx) Social History Tobacco Use Types Packs/Day Years Used Date Smoking Tobacco: Never Assessed Comments Unknown Sex and Gender Information Value Date Recorded Sex Assigned at Not on file Legal Sex Female 4:16 AM AGRONOMY LOCATION MANAGER Gender Identity Not on file Sexual Orientation Not on file documented as of this encounter Plan of Treatment Not on file documented as of this encounter Visit Diagnoses Diagnosis Screening mammogram for high-risk patient- Primary documented in this encounter Care Teams Reconciliation Machine Operator Relationship Specialty Start Date End Date Ben Alatorre MD PCP - General Internal Medicine 01/30/12 documented as of this encounter
--- OUTSIDE RECORDS SUMMARY | 2024-09-08 11:08 | XMS_ITS | Encounter Summary ---
Author Organization [facility] Address [address] [place] [address] Care Team Providers Care Malt Roaster Name Role Phone Ben Alatorre MD Primary Care Provider [phone] Encounter Details Date Type Department Care Team (Latest Contact Info) Description 01/21/2001 Outpatient Historical HIS [facility] Aries Dodge NO ADDRESS ON FILE Personal history of malignant neoplasm of breast (Primary Dx) Social History Tobacco Use Types Packs/Day Years Used Date Smoking Tobacco: Never Assessed Comments Unknown Sex and Gender Information Value Date Recorded Sex Assigned at Not on file Legal Sex Female 4:16 AM VEHICLE PAINTER Gender Identity Not on file Sexual Orientation Not on file documented as of this encounter Plan of Treatment Not on file documented as of this encounter Visit Diagnoses Diagnosis Personal history of malignant neoplasm of breast- Primary documented in this encounter Care Teams Malt Roaster Relationship Specialty Start Date End Date Ben Alatorre MD PCP - General Internal Medicine 01/30/12 documented as of this encounter
--- OUTSIDE RECORDS SUMMARY | 2024-09-08 11:08 | XMS_ITS | Encounter Summary ---
Author Organization [facility] Address [address] [place] [address] Care Team Providers Care Second Ride Fare Collector Name Role Phone Ben Alatorre MD Primary Care Provider [phone] Encounter Details Date Type Department Care Team (Late st Contact Info) Description 10/11/2003 Outpatient Historical HIS [facility] Aries Mcintosh NO ADDRESS ON FILE Social History Tobacco Use Types Packs/Day Years Used Date Smoking Tobacco: Never Assessed Comments Unknown Sex and Gender Information Value Date Recorded Sex Assigned at Not on file Legal Sex Female 4:16 AM SENIOR SALES DIRECTOR Gender Identity Not on file Sexual Orientation Not on file documented as of this encounter Plan of Treatment Not on file documented as of this encounter Visit Diagnoses Not on filedocumented in this encounter Care Teams Second Ride Fare Collector Relationship Specialty Start Date End Date Ben Alatorre MD PCP - General Internal Medicine 01/30/12 documented as of this encounter
--- OUTSIDE RECORDS SUMMARY | 2024-09-08 11:08 | XMS_ITS | Clinical Summary ---
Author Organization [facility] Address [address] [facility] [place] [address] Phone Care Team Providers Care Waiter/Waitress Third Class Name Role Phone Ben Alatorre MD Primary Care Provider [phone] Family History Medical History Relation Name Comments Breast Cancer Maternal Grandmother Relation Name Status Comments Maternal Grandmother Social History Tobacco Use Types Packs/Day Years Used Date Smoking Tobacco: Never Assessed Comments Unknown Sex and Gender Information Value Date Recorded Sex Assigned at Not on file Legal Sex Female 4:16 AM STENOTYPE OPERATOR Gender Identity Not on file Sexual Orientation Not on file Occupation Industry Job Start Date Job End Date Not on file Not on file Not on file Not on file Not on file Not on file Not on file Not on file Plan of Treatment Health Maintenance Due Date Last Done Comments DTAP/TDAP/TD VACCINES (1 - Tdap) 1965 PNEUMOCOCCAL VACCINE 50+ YEARS (1 of 1 - PCV) 03/09/19 96 ZOSTER VACCINE (1 of 2) 1996 OSTEOPOROSIS SCREENING 2011 RSV VACCINE (60+ or ) (1 - 1-dose 75+ series) 2021 INFLUENZA VACCINE (#1) 2024 Insurance [facility] [id number] [address] [address] [id number] Care Teams Waiter/Waitress Third Class Relationship Specialty Start Date End Date Ben Alatorre MD PCP - General Internal Medicine 01/30/12
--- OUTSIDE RECORDS SUMMARY | 2024-09-08 11:08 | XMS_ITS | Encounter Summary ---
Author Organization [facility] Address 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
--- OUTSIDE RECORDS SUMMARY | 2024-09-08 11:08 | XMS_ITS | Encounter Summary ---
Author Organization [facility] Address 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) Social History Tobacco Use Types Packs/Day Years Used Date Smoking Tobacco: Never Assessed Comments Unknown Sex and Gender Information Value Date Recorded Sex Assigned at Not on file Legal Sex Female 4:16 AM RESERVATIONS SALES AGENT Gender Identity Not on file Sexual Orientation Not on file documented as of this encounter Plan of Treatment Not on file documented as of this encounter Visit Diagnoses Diagnosis Malignant neoplasm of upper-outer quadrant of female breast (CMS/HCC)- Primary Malignant neoplasm of upper-outer quadrant of female breast documented in this encounter Care Teams Car Servicer Relationship Specialty Start Date End Date Ben Alatorre MD PCP - General Internal Medicine 01/30/12 documented as of this encounter
--- OUTSIDE RECORDS SUMMARY | 2024-09-08 11:08 | XMS_ITS | Continuity of Care Document ---
Author Organization [facility] Address [address] [place] [address] [address] [place] [address] Phone Care Team Providers Care Strip Feeder Name Role Phone Kris Conway Unavailable Unavailable Procedures Procedure Date Eye Exam & Treatment Advance Directives Directive Yes / No Effective Date File Name No Information Encounters Encounter Description Practice Location Reason(s) For Visit Diagnoses Date Provider Providers Copied on Encounter [facility], [id number] [place] [address] [address], [place], [place], [id number], [place] tel:[phone] [facility] No Information 7-[address] Zoraida Ponce. [address] , [address], [place], [address], [place]. tel:[phone] Family History Family Member Type Diagnosis Age At Onset No Information Payers Payer name Insurance type Covered alliance party ID Authoriza tion(s) No Information Social [...]
--- OUTSIDE RECORDS SUMMARY | 2024-09-08 11:08 | XMS_ITS | Encounter Summary ---
Author Organization [facility] Address [address] [place] [address] Care Team Providers Care Dock Coordinator Name Role Phone Ben Alatorre MD Primary Care Provider [phone] Encounter Details Date Type Department Care Team (Latest Contact Info) Description 11/13/2006 Outpatient Historical HIS [facility]YOT[facility] ALFARO BLDG Conversion, History Personal History of Malignant Neoplasm of Breast (Primary Dx) Social History Tobacco Use Types Packs/Day Years Used Date Smoking Tobacco: Never Assessed Comments Unknown Sex and Gender Information Value Date Recorded Sex Assigned at Not on file Legal Sex Female 4:16 AM FIELD MARKETING ASSOCIATE Gender Identity Not on file Sexual Orientation Not on file documented as of this encounter Plan of Treatment Not on file documented as of this encounter Visit Diagnoses Diagnosis Personal history of malignant neoplasm of breast- Primary documented in this encounter Care Teams Dock Coordinator Relationship Specialty Start Date End Date Ben Alatorre MD PCP - General Internal Medicine 01/30/12 documented as of this encounter
--- OUTSIDE RECORDS SUMMARY | 2024-09-08 11:08 | XMS_ITS | Clinical Summary ---
Author Organization [facility] [address] [place] [address] Care Team Providers Care Pantograph Transferrer Name Role Phone Ben Alatorre MD Primary Care Provider [phone] Allergies Active Allergy Reactions Criticality Noted Date [...] mg tablet Take by mouth Active vit C,R-Tb-ixatq-lilibeth tein-zeaxan 250-90-40-1 mg capsule Take 1 capsule [...] 07/15/2023 Assessment & Plan (07/15/2023 4:10 PM INFANT TEACHER): Fall precautions discussed Calcium and vitamin-D intake [...] 04/14/2017 Assessment & Plan (07/15/2023 4:11 PM INFANT TEACHER): Update 25 hydroxy vitamin-D level Will adjust [...] ultrasound Assessment & Plan (07/03/2021 4:10 PM INFANT TEACHER): Pathophysiology of the condition was discussed with [...] Department Care Team Description 07/08/2024 3:15 PM INFANT TEACHER Office Visit [facility] [address] [address] Eileen New MD Vitamin D deficiency (Primary Dx); Other osteoporosis without current pathological fracture from Last 3 Months Immunizations Immunization Administration Dates Next Due Influenza, [...] Medical History Medical History Date Comments Hyperparathyroidism Breast cancer (HCC) 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) Hyperthyroidism Hyperparathyroidism, primary 07/03/2021 Hyperparathyroidism 03/24/2023 Family History Medical History Relation Name [...] on file Legal Sex Female 11:13 AM INFANT TEACHER Gender Identity Not on file Sexual Orientation Not on file Obstetrics History Last Filed Vital Signs Vital Sign Reading Time Taken Comments Blood Pressure 112/62 07/08/2024 3:19 PM INFANT TEACHER Pulse 66 07/08/2024 3:19 PM INFANT TEACHER Temperature 37.1 C (98.7 F) 04/13/2023 11:19 AM INFANT TEACHER Respiratory Rate 17 07/08/2024 3:19 PM INFANT TEACHER Oxygen Saturation 98% 04/13/2023 11:19 AM INFANT TEACHER Inhaled Oxygen Concentration - - Weight 73.9 kg (163 lb) 07/08/2024 3:19 PM INFANT TEACHER Height 167.6 cm (5' 6 ) 07/08/2024 3:19 PM INFANT TEACHER Body Mass Index 26.31 07/08/2024 3:19 PM INFANT TEACHER Plan of Treatment Health Maintenance Due Date [...] Most Recently Relevant to Health Maintenance Insurance [employer] MEDICARE AET MEDICARE AETNA MEDICARE Care Teams Pantograph Transferrer Relationship Specialty Start Date End Date Ben Alatorre MD PCP - General Internal Medicine 05/23/21
--- OUTSIDE RECORDS SUMMARY | 2024-09-08 11:08 | XMS_ITS | Encounter Summary ---
Author Organization [facility] Address [address] [place] [address] Care Team Providers Care Reaming Press Operator Name Role Phone Ben Alatorre MD Primary Care Provider [phone] Encounter Details Date Type Department Care Team (Late st Contact Info) Description 12/13/2008 Outpatient Historical HIS [facility] ANGELINA CURRY [facility], External Provider [address] [place] [address] Other Screening Mammogram Social History Tobacco Use Types Packs/Day Years Used Date Smoking Tobacco: Never Assessed Comments Unknown Sex and Gender Information Value Date Recorded Sex Assigned at Not on file Legal Sex Female 4:16 AM FERTILIZER SUPERVISOR Gender Identity Not on file Sexual Orientation [...] AM CDT Narrative 12/14/2008 3:20 PM CDT [facility] [address] [place], [place] [address] Admit Date: 12/13/2008 MARYSOL ALFORD Sex: F Admit Prov: DOCTOR , NOT ONSTAFF Date: 1945 Primary Care Prov: CMRN: [id number] Room: FELA SSN: [id number] IMAGING SERVICES Ordering Prov: DOCTOR NOT ONSTA Accession Number: [id number] Interpretation DIGITAL SCREENING MAMMOGRAM WITH COMPUTER-ASSISTED DIAGNOSIS [...] Procedure Note Margy Monteiro MD - 12/14/[address] [address] Admit Date: 12/13/2008 MARYSOL ALFORD Sex: F Admit Prov: DOCTOR , NOT ONSTAFF Date: 1945 Primary Care Prov: CMRN: [id number] Room: FELA SSN: [id number] IMAGING SERVICES Ordering Prov: DOCTOR , NOT [...] 15:20 Transcribed: 12/14/2008 09:05 AMK External Provider [facility] [place] Final R esult documented in this encounter Visit Diagnoses Diagnosis Other screening mammogram documented in this encounter Care Teams Reaming Press Operator Relationship Specialty Start Date End Date Ben Alatorre MD PCP - General Internal Medicine 01/30/12 documented as of this encounter
--- OUTSIDE RECORDS SUMMARY | 2024-09-08 11:08 | XMS_ITS | Encounter Summary ---
Author Organization [facility] Address [address] [place] [address] Care Team Providers Care Office Machines Teacher Name Role Phone Ben Alatorre MD Primary Care Provider [phone] Encounter Details Date Type Department Care Team (Late st Contact Info) Description 09/06/2003 Outpatient Historical [facility] Aries Mcintosh NO ADDRESS ON FILE Social History Tobacco Use Types Packs/Day Years Used Date Smoking Tobacco: Never Assessed Comments Unknown Sex and Gender Information Value Date Recorded Sex Assigned at Not on file Legal Sex Female 4:16 AM MEDICAL PSYCHOTHERAPIST Gender Identity Not on file Sexual Orientation Not on file documented as of this encounter Plan of Treatment Not on file documented as of this encounter Visit Diagnoses Not on filedocumented in this encounter Care Teams Office Machines Teacher Relationship Specialty Start Date End Date Ben Alatorre MD PCP - General Internal Medicine 01/30/12 documented as of this encounter
== END 2024-09-08 09:59 | disposition home or self-care (01) ==
LOC: ANHIMG 10:00
PROVIDERS: PCP Internal Medicine; Visit Provider Internal Medicine
DX: Z12.31 Encounter for screening mammogram for malignant neoplasm of breast (principal)
CPT/HCPCS: 77063; 77067

== ENCOUNTER 2025-02-21 10:52 | Outpatient (CLI) | payer MEDICARE, SELFPAY ==
--- OUTSIDE RECORDS SUMMARY | 2007-12-14 03:25 | XMS_ITS | Continuity of Care Document ---
Author Organization [facility] Address [address] [place] [address] [address] [place] [address] Phone Care Team Providers Care Imaging Manager Name Role Phone Kris Conway Unavailable Unavailable Procedures Procedure Date Eye Exam & Treatment Advance Directives Directive Yes / No Effective Date File Name No Information Encounters Encounter Description Practice Location Reason(s) For Visit Diagnoses Date Provider Providers Copied on Encounter [facility], [id number] [place] [address] [address], [place], [place], [id number], [place] tel:[phone] [facility] No Information [phone] Zoraida Ponce. [address] , [address], [place], [address], [place]. tel:[phone] Family History Family Member Type Diagnosis Age At Onset No Information Payers Payer name Insurance type Covered republican ID Authoriza tion(s) No Information Social History Type Description Quantity Date Captured Comments Sex Female Smoking Status No Information Chief Complaint And Reason For Visit No Information Reason For Referral Reason For Referral No Information History Of Present Illness Encounter Date Complaint History Of Prese nt Illness No Information Functional Status Date Functional Assessmen t No Information Instructions Date Instruction Additional Infor mation No Information Assessments Type Assessment Date No Information Patient Care Teams Name Effective Dates (start - stop) Status Members No Information
--- NOTE | ~2025-02-21 | DEXA_ITS ---
Bone Density Report Name: JAVIER ALFORD Age: 79 Sex: Female Ethnicity: White Date of : 1945 Indication: osteopenia; monitoring treatment; hyperparathyroidism; height loss; prior fracture; cancer; hysterectomy; Referring Provider: CHRISTINAKARRI Study: Bone densitometry was performed. Exam Date: February 21, 2025 Accession number: [id number] Bone Density: Region BMD T-score Z-score Classification AP Spine(L1-L4) 0.937 -1.0 1.6 Normal Femoral Neck (Left) 0.673 -1.6 0.7 Osteopenia Total Hip (Left) 0.785 -1.3 0.7 Osteopenia Femoral Neck (Right) 0.755 -0.8 1.4 Normal Total Hip (Right) 0.789 -1.3 0.7 Osteopenia Total Hip Mean 0.787 -1.3 0.7 Osteopenia World Health Organization criteria for BMD impression classify patients as: Normal (T-score at or above -1.0), Osteopenia (T-score between -1.0 and -2.5), or Osteoporosis (T-score at or below -2.5). 10-year Fracture Risk: FRAX not reported because: Treated for osteoporosis Previous Exams: Region Exam Age BMD T-score BMD Change BMD Change Date g/cm2 vs Baseline vs Previous AP Spine (L1-L4) 02/21/2025 79 0.937 -1.0 0.089 (10.5%)* 0.089 (10.5%)* 01/09/2023 77 0.848 -1.8 Total Hip(Left) 02/21/2025 79 0.785 -1.3 -0.007 (-0.9%) 0.031 (4.1%)* 01/09/2023 77 0.754 -1.5 -0.038 (-4.8%) -0.038 (-4.8%) 04/12/2020 75 0.792 -1.2 Total Hip(Right) 02/21/2025 79 0.789 -1.3 0.002 (0.2%) 0.055 (7.5%)* 01/09/2023 77 0.734 -1.7 -0.053 (-6.7%) -0.053 (-6.7%) 04/12/2020 75 0.787 -1.3 *Denotes significance at 95% confidence level, LSC for AP Spine = 0.022 g/cm2, LSC for Total Hip = 0.027 g/cm2 Clinical Information Provided by Patient: Has had a low trauma fracture Is being treated for osteoporosis Has used the following medications: Vitamin D, Calcium Has the following medical conditions: Cancer, Hyperparathyroidism, Hysterectomy Patient maximum height was 66.5 Menopause Age: 53 No regular weight bearing exercise Does not regularly consume dairy products Drinks caffeinated beverages Onset of menses at age 14 Number of children 2 Impression: The patient has low bone mass, based on the Left Femoral Neck T-score. The patient has risk factors, including: previous fracture. No significant bone loss was observed. Discussion: PATIENT UNDER TREATMENT WITH NO SIGNIFICANT BMD LOSS SINCE LAST EXAM. In an untreated patient, BMD typically declines with age. A lack of decline or gain is usually a sign that treatment is efficacious and fracture risk is reduced. It is important to ask patients whether they are taking their medications and to encourage continued and appropriate compliance with their osteoporosis therapies to reduce fracture risk. It is also important to review their risk factors and encourage appropriate calcium and vitamin D intakes, exercise, fall prevention and other lifestyle measures. Follow-Up: Consider a repeat BMD and Vertebral Fracture Assessment (VFA) exam in 2 years or sooner if medically necessary, to reassess this patient's status. Reported by: AKSHAT on 02/21/2025 11:38:00 AM. Reviewed, dictated and finalized at location A.
--- OUTSIDE RECORDS SUMMARY | 2025-02-21 12:40 | XMS_ITS | Encounter Summary ---
Author Organization [email or web address] Address [address] [place] [address] Care Team Providers Care Indirect Fire Infantryman Name Role Phone Ben Alatorre MD Primary Care Provider [phone] Encounter Details Date Type Department Care Team (Latest Contact Info) Description 01/21/2001 Outpatient Historical HIS [facility] Aries Dodge NO ADDRESS ON FILE Personal history of malignant neoplasm of breast (Primary Dx) Social History Tobacco Use Types Packs/Day Years Used Date Smoking Tobacco: Never Assessed Comments Unknown Sex and Gender Information Value Date Recorded Sex Assigned at Not on file Legal Sex Female 4:16 AM BONE PROCESS OPERATOR Gender Identity Not on file Sexual Orientation Not on file documented as of this encounter Plan of Treatment Not on file documented as of this encounter Visit Diagnoses Diagnosis Personal history of malignant neoplasm of breast- Primary documented in this encounter Care Teams Indirect Fire Infantryman Relationship Specialty Start Date End Date Ben Alatorre MD PCP - General Internal Medicine 01/30/12 documented as of this encounter
--- OUTSIDE RECORDS SUMMARY | 2025-02-21 12:40 | XMS_ITS | Encounter Summary ---
Author Organization [facility] Address [address] [place] [address] Care Team Providers Care Utility Worker Forge Name Role Phone Ben Alatorre MD Primary Care Provider [phone] Encounter Details Date Type Department Care Team (Latest Contact Info) Description 01/22/2000 Outpatient Historical HIS [facility] Aries Dodge NO ADDRESS ON FILE Malignant neoplasm of breast (female), unspecified site (Primary Dx) Social History Tobacco Use Types Packs/Day Years Used Date Smoking Tobacco: Never Assessed Comments Unknown Sex and Gender Information Value Date Recorded Sex Assigned at Not on file Legal Sex Female 4:16 AM SOCIAL WORK NURSE Gender Identity Not on file Sexual Orientation Not on file documented as of this encounter Plan of Treatment Not on file documented as of this encounter Visit Diagnoses Diagnosis Malignant neoplasm of breast (female), unspecified site- Primary documented in this encounter Care Teams Utility Worker Forge Relationship Specialty Start Date End Date Ben Alatorre MD PCP - General Internal Medicine 01/30/12 documented as of this encounter
--- OUTSIDE RECORDS SUMMARY | 2025-02-21 12:40 | XMS_ITS | Clinical Summary ---
Author Organization [facility] Address [address] [facility] [place] [address] Phone Care Team Providers Care Fiber Heel Piece Shaper Name Role Phone Ben Alatorre MD Primary Care Provider Family History Medical History Relation Name Comments Breast Cancer Maternal Grandmother Relation Name Status Comments Maternal Grandmother Social History Tobacco Use Types Packs/Day Years Used Date Smoking Tobacco: Never Assessed Comments Unknown Sex and Gender Information Value Date Recorded Sex Assigned at Not on file Legal Sex Female 4:16 AM LEARNING STRATEGIST Gender Identity Not on file Sexual Orientation [...] 1-dose 75+ series) 2021 INFLUENZA VACCINE (#1) 2025 Insurance [facility] [id number] [place] [id number] Care Teams Fiber Heel Piece Shaper Relationship Specialty Start Date End Date Ben Alatorre MD PCP - General Internal Medicine 01/30/12
--- OUTSIDE RECORDS SUMMARY | 2025-02-21 12:40 | XMS_ITS | Encounter Summary ---
Author Organization [facility] Healthcare Address [address] [place] [address] Care Team Providers Care Ecological Technical Officer Name Role Phone Ben Alatorre MD Primary Care Provider [phone] Reason for Visit * Reason Onset Date Comments Dexa Axial & Forearm Order 02/21/2025 Encounter Details Date Type Department Care Team (Late st Contact Info) Description 02/21/2025 [facility] [address] [facility] [address] [place] [address] [place] [address] [facility] [address] [address] Dexa Axial & Forearm Order Social History Tobacco Use Types Packs/Day Years Used Date Smoking Tobacco: Never Smokeless Tobacco: Never PHQ-2 Answer Date Recorded PHQ-2 Total Score [...] on file Legal Sex Female 11:13 AM AGENCY DIRECTOR Gender Identity Not on file Sexual Orientation Not on file documented as of this encounter Miscellaneous Notes * Telephone Encounter - Yesenia Us - 02/21/2025 11:21 AM CDT Deya called regarding the Dexa Axial & Forearm order, the Dexa Axial was completed, however, she is questioning the forearm, Deya stated the forearm is done separately & if Dr New would like the forearm done to give her a call @ . Deya stated she don't believe insurance will pay for the forearm. documented in this encounter Plan of Treatment Not on file documented as of this encounter Visit Diagnoses Not on filedocumented in this encounter Care Teams Ecological Technical Officer Relationship Specialty Start Date End Date Ben Alatorre MD PCP - General Internal Medicine 05/23/21 documented as of this encounter
--- OUTSIDE RECORDS SUMMARY | 2025-02-21 12:40 | XMS_ITS | Encounter Summary ---
Author Organization [facility] Address [address] [place] [address] Care Team Providers Care Hardboard Factory Worker Name Role Phone Ben Alatorre MD Primary Care Provider [phone] Encounter Details Date Type Department Care Team (Latest Contact Info) Description 07/25/2003 Outpatient Historical HIS [facility] Aries Dodge NO ADDRESS ON FILE SCREENING MAMM-MAILG NEOPL-OTHER (Primary Dx) Social History Tobacco Use Types Packs/Day Years Used Date Smoking Tobacco: Never Assessed Comments Unknown Sex and Gender Information Value Date Recorded Sex Assigned at Not on file Legal Sex Female 4:16 AM COLOR DIPPER Gender Identity Not on file Sexual Orientation Not on file documented as of this encounter Plan of Treatment Not on file documented as of this encounter Visit Diagnoses Diagnosis Other screening mammogram- Primary documented in this encounter Care Teams Hardboard Factory Worker Relationship Specialty Start Date End Date Ben Alatorre MD PCP - General Internal Medicine 01/30/12 documented as of this encounter
--- OUTSIDE RECORDS SUMMARY | 2025-02-21 12:40 | XMS_ITS | Patient Health Record ---
Author Organization [facility] Address [address] [place] [address] Care Team Providers Care Biofuels Processing Technician Name Role Phone EVITA WALKER Unavailable [phone] Reason For Referral No Information Medications Medication SIG (Take, Route, Fr equency, Duration) Notes Start Date End Date Status Vitamin D 1000 UNIT 1 tablet Orally Once a day; Duration: 30 day(s) Active Aspirin 81 MG 1 tablet Orally Once a day; Duration: 30 day(s) Active Social History Tobacco Use: [...] Problem Status W/U Status Risk Notes Problem Pain co-occurrent and due to varicose veins of bilateral legs (94207632638189 100) Varicose veins of bilateral lower extremities with pain (I83.813) Active confirmed Problem Overweight (399342055) Overweight (BMI 25.0-29.9) (E66.3) Active confirmed Problem Pain in limb (52734189) Pain of left lower extremity (M79.605) Active confirmed Plan Of Treatment No Information Insurance Providers Payer Name Payer Address Payer Phone Subscriber Number Group Number Insured Name Patient Relationship to Insured Coverage Start Date Coverage End Date [facility] [employer] [address] [address] [place] [address] [id number] Marysol Robb Self - patient is the insured Medical (General) History Medical History History ICD Code varicose veins, kidney stones Surgical History Surgery Date(Month/Year) lumpectomy 1991 hysterectomy 1997
--- OUTSIDE RECORDS SUMMARY | 2025-02-21 12:40 | XMS_ITS | Encounter Summary ---
Author Organization [facility] Address 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) Social History Tobacco Use Types Packs/Day Years Used Date Smoking Tobacco: Never Assessed Comments Unknown Sex and Gender Information Value Date Recorded Sex Assigned at Not on file Legal Sex Female 4:16 AM ELASTIC ASSEMBLER Gender Identity Not on file Sexual Orientation Not on file documented as of this encounter Plan of Treatment Not on file documented as of this encounter Visit Diagnoses Diagnosis Malignant neoplasm of upper-outer quadrant of female breast (CMS/HCC)- Primary Malignant neoplasm of upper-outer quadrant of female breast documented in this encounter Care Teams Field Service Manager Relationship Specialty Start Date End Date Ben Alatorre MD PCP - General Internal Medicine 01/30/12 documented as of this encounter
--- OUTSIDE RECORDS SUMMARY | 2025-02-21 12:40 | XMS_ITS | Encounter Summary ---
Author Organization [facility] Address 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 [place], [place] [address] Admit Date: 12/13/2008 MARYSOL ALFORD Sex: F Admit Prov: DOCTOR , NOT ONSTAFF Date: 1945 Primary Care Prov: CMRN: [id number] Room: FELA SSN: [id number] IMAGING SERVICES Ordering Prov: DOCTOR NOT ONSTA Accession Number: [id number] Interpretation DIGITAL SCREENING MAMMOGRAM WITH COMPUTER-ASSISTED DIAGNOSIS [...] 1-Negative Recommendation: Normal interval follow-up Dictated by: MARYG BIRD Electronically signed by: MARGY BIRD 12/14/2008 15:20 Transcribed: 12/14/2008 09:05 AMK Procedure Note Margy Monteiro MD - 12/14/[address] [address] Admit Date: 12/13/2008 MARYSOL ALFORD Sex: F Admit Prov: DOCTOR , NOT ONSTAFF Date: 1945 Primary Care Prov: CMRN: [id number] Room: FELA SSN: [id number] IMAGING SERVICES Ordering Prov: DOCTOR , NOT [...] 15:20 Transcribed: 12/14/2008 09:05 AMK External Provider [facility] MAMMO ORDERABLES Final R esult documented in this encounter Visit Diagnoses Diagnosis Other screening mammogram documented in this encounter Care Teams Junior Accountant Relationship Specialty Start Date End Date Ben Alatorre MD PCP - General Internal Medicine 01/30/12 documented as of this encounter
--- OUTSIDE RECORDS SUMMARY | 2025-02-21 12:40 | XMS_ITS | Encounter Summary ---
Author Organization [facility] Address 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
--- OUTSIDE RECORDS SUMMARY | 2025-02-21 12:40 | XMS_ITS | Encounter Summary ---
Author Organization [facility] Address [address] [place] [address] Care Team Providers Care Clicking Machine Operator Name Role Phone Ben Alatorre MD Primary Care Provider [phone] Encounter Details Date Type Department Care Team (Latest Contact Info) Description 01/23/2025 Results Follow-Up [facility] [address] [facility] [address] [address] [place] [address] [facility] [address] [address] Comprehensive metabolic panel Social History Tobacco Use Types Packs/Day Years [...] on file Legal Sex Female 11:13 AM OVEN HEATER Gender Identity Not on file Sexual Orientation Not on file documented as of this encounter Plan of Treatment Not on file documented as of this encounter Visit Diagnoses Not on filedocumented in this encounter Care Teams Clicking Machine Operator Relationship Specialty Start Date End Date Ben Alatorre MD PCP - General Internal Medicine 05/23/21 documented as of this encounter
--- OUTSIDE RECORDS SUMMARY | 2025-02-21 12:40 | XMS_ITS | Encounter Summary ---
Author Organization [facility] Address 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
--- OUTSIDE RECORDS SUMMARY | 2025-02-21 12:41 | XMS_ITS | Encounter Summary ---
Author Organization [facility] Address 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
--- OUTSIDE RECORDS SUMMARY | 2025-02-21 12:41 | XMS_ITS | Encounter Summary ---
Author Organization [facility] Address 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
--- OUTSIDE RECORDS SUMMARY | 2025-02-21 12:41 | XMS_ITS | Encounter Summary ---
Author Organization [facility] Address 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
--- OUTSIDE RECORDS SUMMARY | 2025-02-21 12:41 | XMS_ITS | Encounter Summary ---
Author Organization [facility] Address 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
--- OUTSIDE RECORDS SUMMARY | 2025-02-21 12:41 | XMS_ITS | Encounter Summary ---
Author Organization [facility] Address 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 Gender Identity Not on file Sexual [...] AM CDT Narrative 12/16/2007 5:16 PM CDT [address] [address] Admit Date: 12/10/2007 MARYSOL ALFORD Sex: F Admit Prov: DOCTOR, NOT O Date: 1945 Primary Care Prov: CMRN: [id number] Room: FELA SSN: [id number] IMAGING SERVICES Ordering Prov: BEN ALATORRE Accession Number: [id number] Interpretation BILATERAL SCREENING DIGITAL MAMMOGRAMS WITH COMPUTER [...] Procedure Note Kraig Diallo MD - 12/16/2007 [id number] [place], [place] [address] Admit Date: 12/10/2007 MARYSOL ALFORD Sex: F Admit Prov: DOCTOR, NOT O Date: 1945 Primary Care Prov: CMRN: [id number] Room: FELA SSN: [id number] IMAGING SERVICES Ordering Prov: BEN ALATORRE Interpretation [...] mammogram documented in this encounter Care Teams Marine Equipment Preservation Inspector Relationship Specialty Start Date End Date Ben Alatorre MD PCP - General Internal Medicine 01/30/12 documented as of this encounter
--- OUTSIDE RECORDS SUMMARY | 2025-02-21 12:41 | XMS_ITS | Encounter Summary ---
Author Organization [facility] Address 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
--- OUTSIDE RECORDS SUMMARY | 2025-02-21 12:41 | XMS_ITS | Clinical Summary ---
Author Organization [facility] Physician Office Building [address] [place] [address] Care Team Providers Care Aircraft Maintenance Instructor Name Role Phone Ben Alatorre MD Primary Care Provider [phone] Allergies Active Allergy Reactions Criticality Noted Date Comments Latex Blisters High 02/24/2023 Sulfa (Sulfonamide Antibiotics) Blisters High 06/10 Medications aspirin 81 mg chewable tablet 1 tablet (81 mg total) Active cholecalciferol (cholecalciferol) 25 mcg (1,000 unit) tablet Take 1 tablet (1,000 Units total) by mouth daily Active vitamin B complex capsule Take 1 capsule by mouth daily Active ascorbic acid (ascorbic acid with blanco hips) 500 mg tablet,chewable Acti ve zinc 50 mg tablet Take by mouth Active vit C,I-Xl-vyujf-lute in-zeaxan 250-90-40-1 mg capsule Take 1 capsule by mouth daily Active calcium citrate (CALCITRATE) 950 mg (200 mg of elemental calcium) tablet Take 2 tablets (1,900 mg total) by mouth daily for 7 days, THEN 1 tablet (950 mg total) daily for 7 days. 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,Vitamin D deficiency Take 1 tablet (70 mg total) by mouth every 7 days 1 tablet weekly on an empty stomach, remain upright for at least 30 minutes 12 tablet 2 5 09/23/19 26 Active Active Problems Problem Noted Date Diagnosed Date Other osteoporosis without current pathological fracture 07/15/2023 Assessment & Plan (07/15/2023 4:10 PM BUGGY MAN): Fall precautions discussed Calcium and vitamin-D intake [...] 04/14/2017 Assessment & Plan (07/15/2023 4:11 PM BUGGY MAN): Update 25 hydroxy vitamin-D level Will adjust [...] ultrasound Assessment & Plan (07/03/2021 4:10 PM BUGGY MAN): Pathophysiology of the condition was discussed with [...] Encounters Date Type Department Care Team Description 02/21/2025 Telephone [facility] [address] [phone] Eileen New MD Dexa Axial & Forearm Order 01/23/2025 Results Follow-Up [facility] [address] [phone] Eileen New MD Comprehensive metabolic panel 01/20/2025 3:05 PM CDT Lab [address] [address] Vitamin D deficiency 01/20/2025 2:15 PM CDT Office Visit [facility] [address] [address] Eileen New MD Vitamin D [...] on file Legal Sex Female 11:13 AM BUGGY MAN Gender Identity Not on file Sexual Orientation Not on file Obstetrics History Last Filed Vital Signs Vital Sign Reading Time Taken Comments Blood Pressure 108/60 01/20/2025 2:16 PM CDT Pulse 70 01/20/2025 2:16 PM CDT Temperature 37.1 C (98.7 F) 04/13/2023 11:19 AM BUGGY MAN Respiratory Rate 14 01/20/2025 2:16 PM CDT Oxygen Saturation 98% 04/13/2023 11:19 AM BUGGY MAN Inhaled Oxygen Concentration - - Weight 74.2 kg (163 lb 9.6 oz) 01/20/2025 2:16 P M CDT Height 167.6 cm (5' 6) 01/20/2025 2:16 PM CDT Body Mass Index 26.41 01/20/2025 2:16 PM CDT Plan of Treatment Health Maintenance Due Date Last Done Comments Hepatitis C Screening 1945 DTaP/Tdap/Td Vaccine (1 - Tdap) 1957 Hepatitis B Screening 1964 Zoster Vaccine (1 of 2) 1996 Well Visit 65+ 2011 Depression Screening 12/11/2022 12/11/2021 Fall Risk Assessment 03/24/2024 03/24/2023 Osteoporosis Screening-Bone Density Scan 01/09/2025 01/09/2023 Covid-19 Vaccine (2024-2 6 season) 2025 05/07/2021, 08/31/2020, 08/31/2020, Additional history exists Influenza Vaccine (#1) 2025 , 03/15/2019, 03/16/2018, Additional history exists Pneumococcal vaccine 65+ Completed 02/13/2018, 04/09 Procedures Procedure Name Priority Date/Time Associated Diagnosis Comments EGFR Routine 01/20/2025 3:05 PM CDT Vitamin D deficiency PTH Routine 01/20/2025 3:05 PM CDT Vitamin D deficiency VITAMIN D 25 HYDROXY Routine 01/20/2025 3:05 PM CDT Vitamin D deficiency COMPREHENSIVE METABOLIC PANEL Routine 01/20/2025 3:05 PM CDT Vitamin D deficiency DEXA AXIAL SKELETON BONE DENSITY 1 OR MORE SITES Schedule Routine, Read Routine (OP Routine) 01/09/2023 3:23 PM CDT from Last 3 Months or Most Recently Relevant to Health Maintenance Results * eGFR (01/20/2025 3:05 PM CDT) eGFR 61 >=60 mL/min/1. 73 m2 Comment: Interpretive Data Reference Interval Normal >/= 90 mL/min/1.73m2 Mildly decreased* 60 - 89 mL/min/1.73m2 Mildly to moderately decreased 45 - 59 mL/min/1.73m2 Moderately to severely decreased 30 - 44 mL/min/1.73m2 Severely decreased 15 - 29 mL/min/1.73m2 Kidney Failure < 15 mL/min/1.73m2 *Relative to young adult level Estimated glomerular filtration rate is determined by the 2020 CKD-EPI equation recommended by the National Kidney Foundation (A Unifying Approach to GFR Estimation: Recommendations of the NKF-ASK Task Force on Reassessing the Inclusion of Race in Diagnosing Kidney Disease, JASN 2020). The CKD-EPI equation should not be used for patients with unstable renal function and has not been validated in children and those over 70. Current interpretive data was last reviewed 2021. Blood 01/20/2025 3:05 PM CDT 01/20/2025 5:46 PM CDT us Eileen New MD LAB BLOOD ORDERABLES Final Resul t [address] [place] [address] * Vitamin D 25 hydroxy (01/20/2025 3:05 PM CDT) [facility] Vitamin D 25-OH 38 30 - 80 ng/mL Blood 01/20/2025 3:05 PM CDT 01/20/2025 4:49 PM CDT us Eileen New MD LAB BLOOD ORDERABLES Final Resul t Performing Organization Address [facility] Co de Phone Number [facility] [phone] [facility] [place] [address] * PTH (01/20/2025 3:05 PM CDT) [facility] PTH 32 15 - 65 pg/mL Blood 01/20/2025 3:05 PM CDT 01/20/2025 4:49 PM CDT us Eileen New MD LAB BLOOD ORDERABLES Final Resul t Performing Organization Address [facility] Phone Number [facility] [phone] [facility] [place] [address] * Comprehensive metabolic panel (01/20/2025 3:05 PM CDT) [facility] Sodium 140 135 - 145 mmol/L Potassium, pl 4.5 3.3 - 4.9 mmol/L [facility] Chloride 101 97 - 110 mmol/L [facility] CO2 28 22 - 32 mmol/L [facility] Anion gap 11 2 - 15 mmol/L [facility] BUN 16 6 - 25 mg/dL [facility] Creatinine 0.96 0.60 - 1.10 mg/dL [facility] Glucose 97 70 - 199 mg/dL [facility] Comment: Interpretive Data Fasting glucose >/= 126 mg/dl is diagnostic for diabetes. Fasting is defined as no caloric intake for at least 8 hours. Fasting glucose between 100 mg/dl to 125 mg/dl is diagnostic of prediabetes. In a patient with classic symptoms of hyperglycemia or hyperglycemic crisis, a random glucose >/= 200 mg/dl is diagnostic for diabetes. In the absence of unequivocal hyperglycemia, results should be confirmed by repeat testing. The classification and Diagnosis of Diabetes Diabetes Care 202; 46: S19-S40. Current interpretive data was last revised 2022. Calcium 9.5 8.5 - 10.3 mg/dL [facility] Bilirubin, total 0.3 0.1 - 1.2 mg/dL [facility] Protein, pl 7.0 6.5 - 8.5 g/dL [facility] Albumin 4.0 3.5 - 5.0 g/dL [facility] Alk phos 77 40 - 130 Units/L [facility] ALT 11 7 - 45 Units/L [facility] AST 24 10 - 45 Units/L [facility] Blood 01/20/2025 3:05 PM CDT 01/20/2025 4:49 PM CDT us Eileen New MD LAB BLOOD ORDERABLES Final Resul t [address] Department [place] [address] * Dexa Axial Skeleton Bone Density 1 or 2 Site (01/09/2023 3:23 PM CDT) Anatomical Region Laterality Modality Body N/A Radiographic Fiona ging us Eileen New MD IMG DXA PROCEDURES Final Result from Last 3 Months or Most Recently Relevant to Health Maintenance Insurance T MEDICARE AETNA MEDICARE AETNA MEDICARE Care Teams Aircraft Maintenance Instructor Relationship Specialty Start Date End Date Ben Alatorre MD PCP - General Internal Medicine 05/23/21
--- OUTSIDE RECORDS SUMMARY | 2025-02-21 12:41 | XMS_ITS | Encounter Summary ---
Author Organization [facility] Address 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
--- OUTSIDE RECORDS SUMMARY | 2025-02-21 12:41 | XMS_ITS | Encounter Summary ---
[facility] Address [address] [place] [address] Care Team Providers Care Director Of Accounts Receivable Name Role Phone Ben Alatorre MD Primary Care Provider [phone] Encounter Details Date Type Department Care Team (Late st Contact Info) Description 09/06/2003 Outpatient Historical [facility] Aries Mcintosh NO ADDRESS ON FILE Social History Tobacco Use Types Packs/Day Years Used Date Smoking Tobacco: Never Assessed Comments Unknown Sex and Gender Information Value Date Recorded Sex Assigned at Not on file Legal Sex Female 4:16 AM DIRECTOR PHARMACOVIGILANCE Gender Identity Not on file Sexual Orientation Not on file documented as of this encounter Plan of Treatment Not on file documented as of this encounter Visit Diagnoses Not on filedocumented in this encounter Care Teams Director Of Accounts Receivable Relationship Specialty Start Date End Date Ben Alatorre MD PCP - General Internal Medicine 01/30/12 documented as of this encounter
--- OUTSIDE RECORDS SUMMARY | 2025-02-21 12:41 | XMS_ITS | Encounter Summary ---
Author Organization [facility] Address 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
== END 2025-02-21 10:53 | disposition home or self-care (01) ==
LOC: ANHFOHIMG 10:54
PROVIDERS: PCP Internal Medicine; Visit Provider Internal Medicine Endocrinology, Diabetes & Metabolism
DX: M81.0 Age-related osteoporosis without current pathological fracture (principal); M85.852 Other specified disorders of bone density and structure, left thigh; M85.851 Other specified disorders of bone density and structure, right thigh
CPT/HCPCS: 77080